=== PATIENT | female | born 1970 | race Caucasian/White ===

== ENCOUNTER 2017-03-18 08:17 | Emergency (ER) | payer SELFPAY ==
[~2017-03-18] VITALS: Ht 170.2 cm; Wt 90.0 kg
[2017-03-18 08:21] VITALS: TEMP 36.8; Ht 170.2 cm; Wt 90.0 kg
[2017-03-18] MEDS ORDERED: IBUP-1050 PO (08:32)
[2017-03-18] MEDS ORDERED: NAPR-1169 PO (09:12)
--- NOTE | 2017-03-18 09:13 | EMERGENCY ROOM VISIT NOTE ---
History First contact with patient: 08:22 Chief Complaint: BACK PAIN Stated Complaint: SEVERE LOWER BACK PAIN History of Present Illness The patient is a 46 year old female who presents to the Emergency Room with complaints of low back pain. The patient states that she has chronic pain in her low back, however it has worsened for the past 3 days. She states the pain is located in the lower back and is worse on the left side than the right. She denies any recent trauma to the back. She states that she does not have health insurance and has not been seen by her primary care provider or any other providers regarding this pain. She has not had any imaging done in the past. The patient denies any pain radiating down her legs, numbness/weakness, bowel/ bladder incontinence, fevers/chills, abdominal pain, nausea or vomiting. She states that she took a dose of ibuprofen this morning, but has not been taking anything else for the pain. She rates her discomfort an 8/10. Review of Systems A complete 10 point review of systems was reviewed with the patient with pertinent positives and negatives as per history of present illness. All else were negative. Family History Diabetes mellitus Social History Smoking Status: Never Smoker Alcohol Use: none Marital Status: single Housing Status: lives alone Occupation Status: employed Current/Historical Medications Scheduled Ibuprofen (Advil), 400-600 MG PO Q6H Naproxen (Naprosyn), 500 MG PO BID Physical Exam Vital Signs Date Time Temp Pulse Resp B/P (MAP) Pulse Ox O2 Delivery O2 Flow Rate FiO2 03/18/17 09:34 77 20 133/77 95 03/18/17 08:21 36.8 74 20 129/86 97 Room Air Physical Exam VITALS: Vitals are noted on the nurse's note and reviewed by myself. Vital signs stable. GENERAL: This is a 46-year-old female, in no acute distress, nondiaphoretic, well-developed well-nourished. SKIN: The skin was without rashes, erythema, edema, or bruising. EYES: Pupils equal round and reactive to light and accommodation. NECK: Supple without nuchal rigidity. Cervical spine is nontender. HEART: Regular rate and rhythm without murmurs gallops or rubs. LUNGS: Clear to auscultation bilaterally without wheezes, rales or rhonchi. ABDOMEN: Positive bowel sounds x 4. Soft, nontender to palpation. MUSCULOSKELETAL: There is mild, vague tenderness over the lumbar region, left greater than right. Full range of motion of bilateral lower extremity. Strength 5/5 in bilateral lower extremities. Full range of motion of the spine. NEURO: Patient was alert and oriented to person place and time. Normal sensation to light and sharp touch. Deep tendon reflexes 2+ throughout. No focal neurological deficits. Medical Decision & Procedures Medical Decision Differential diagnosis includes cauda equina syndrome, cord compression, disc herniation, muscle spasm, lumbar strain, epidural abscess, malignancy, transverse myelitis, urinary tract infection, colitis, diverticulitis, kidney stone, among others. The patient is a 46-year-old female who presents today complaining of low back pain. Exam is unremarkable. There is nothing to suggest an infectious process or cauda equina syndrome on exam. I feel the patient's pain is likely musculoskeletal in nature. Conservative measures were discussed with the patient. She was given a prescription for Naprosyn instructed to follow-up with a primary care provider for further evaluation. She verbalized understanding of my assessment and treatment plan and was discharged home in good condition. Medication Reconcilliation Current Medication List: was personally reviewed by me Blood Pressure Screening Patient's blood pressure: Normal blood pressure Impression Primary Impression: Lumbar back pain Departure Information Dispostion Home / Self-Care Condition GOOD Prescriptions Naproxen (Naprosyn) 500 Mg Tab 500 MG PO BID for 10 Days, #20 TAB Prov: Kenzie Butcher .JUAN M 03/18/17 Referrals No Doctor, Assigned (PCP) Patient Instructions Back Pain - [facility], [facility] Additional Instructions You have been treated in the Emergency Department for Back Pain. Naprosyn as prescribed. For pain control, you can use the following [id number] medicines (if >12 yo): - Regular strength (325mg/tab) Tylenol (acetaminophen) 2 tabs every 4-6 hours as needed. Do not exceed 12 tablets in a 24 hour period. Avoid taking more than 4 grams (4000 mg) of Tylenol per day. This includes any other sources of acetaminophen you may take on a regular basis. A heating pad can be used over the area for continued soothing relief. You should schedule a follow-up appointment in 2-3 days with your Primary Care Provider for further evaluation and treatment of your back pain. Return to the Emergency Department if your current symptoms worsen despite treatment course outlined above, or if you develop any of the following symptoms : intractable pain despite aforementioned treatment course, loss of control of your bowel or bladder, numbness or tingling in your groin, or development of a fever. Problem Qualifiers Primary Impression: Lumbar back pain Chronicity: acute Back pain laterality: bilateral Sciatica presence: without sciatica Qualified Codes: M54.5 - Low back pain
[2017-03-18 09:34] VITALS: BP 133/77; PULSE 77; O2SAT 95
== END 2017-03-18 09:35 | disposition home or self-care (01) ==
LOC: C.EDB 08:18
DX: M54.5 Low back pain (principal); Z83.3 Family history of diabetes mellitus

== ENCOUNTER 2017-09-29 19:07 | Emergency (ER) | payer SELFPAY ==
[~2017-09-29] VITALS: Ht 170.2 cm; Wt 88.3 kg
[~2017-09-29 19:07] MED LIST: IBUP-1050 PO
[2017-09-29 19:16] VITALS: TEMP 36.6; Ht 170.2 cm; Wt 88.3 kg
[2017-09-29] MEDS ORDERED: AMOXICILLIN 500 MG CAP PO STA (19:39)
[2017-09-29] MEDS ORDERED: DEXAMETHASONE SOD INJ 4 MG/ML VIAL PO ONE (19:45)
[2017-09-29] MEDS ORDERED: PRED50TA PO (19:51)
[2017-09-29] MEDS ORDERED: AMOX500C3 PO (19:51)
--- NOTE | 2017-09-29 19:52 | EMERGENCY ROOM VISIT NOTE ---
History First contact with patient: 19:23 Chief Complaint: SORETHROAT Stated Complaint: SORE THROAT History of Present Illness The patient is a 47 year old female who presents to the Emergency Room with complaints of a sore throat for the last week. The patient is able to swallow, however it is difficult and painful. She denies any shortness of breath. No trouble opening her mouth. She denies any fever or cough. The patient's daughter recently tested positive for strep Review of Systems 10 system review performed and negative unless noted in HPI or below Past Medical/Surgical History Otherwise healthy Family History Diabetes mellitus Social History Smoking Status: Never Smoker Alcohol Use: none Marital Status: single Housing Status: lives alone Occupation Status: employed Current/Historical Medications Scheduled Amoxicillin (Amoxil), 500 MG PO TID Ibuprofen (Advil), 400-600 MG PO Q6H Prednisone (Prednisone), 50 MG PO DAILY Physical Exam Vital Signs Date Time Temp Pulse Resp B/P (MAP) Pulse Ox O2 Delivery O2 Flow Rate FiO2 09/29/17 20:22 73 18 121/80 95 09/29/17 19:16 36.6 86 18 122/82 98 Room Air Physical Exam VITALS: Vitals are noted on the nurse's note and reviewed by myself. Vital signs stable. GENERAL: 47 y/o, in no acute distress, nondiaphoretic, well-developed well- nourished. SKIN: The skin was without rashes, erythema, edema, or bruising. HEAD: Normocephalic atraumatic. EARS: External auditory canals clear, right tympanic membranes pearly escudero without effusion. Left tympanic membrane is pearly escudero, bulging with a significant effusion EYES: Conjunctivae without injection, sclerae without icterus. Extraocular movements intact. NOSE: Patent, turbinates without inflammation or discharge. No sinus tenderness. MOUTH: Mucous membranes moist. Tonsils are enlarged +2 with erythema and exudate bilaterally. Uvula is midline. No swelling of the soft palate. Airway is patent. NECK: Supple without nuchal rigidity. Lymphadenopathy in the anterior posterior cervical chain bilaterally No JVD. HEART: Regular rate and rhythm without murmurs gallops or rubs. LUNGS: Clear to auscultation bilaterally without wheezes, rales or rhonchi. No accessory muscle use. ABDOMEN: Positive bowel sounds x 4.Soft, nontender, without organomegaly. No guarding or rebound tenderness. MUSCULOSKELETAL: No muscle atrophy, erythema, or edema noted. Strength 5/5 throughout. NEURO: Patient was alert and oriented to person place and time. Normal sensation to touch. No focal neurological deficits. Medical Decision & Procedures Medications Administered Medications (Trade) Dose Ordered Sig/Chente Route Start Time Stop Time Status Last Admin Dose Admin Amoxicillin (Amoxil Cap) 500 mg NOW STAT PO 09/29/17 19:39 09/29/17 19:40 DC 09/29/17 20:18 500 MG Dexamethasone Sodium Phosphate (Decadron Inj) 10 mg NOW ONCE PO 09/29/17 19:45 09/29/17 19:46 DC 09/29/17 20:18 10 MG ED Course The patient was seen and examined A rapid strep was performed The patient was treated with amoxicillin and Decadron Discharge instructions were reviewed, and she was discharged in good condition Medical Decision Differential diagnosis: Viral versus bacterial tonsillitis, peritonsillar abscess This patient is a 47-year-old female who presents to the emergency department with complaints of a sore throat for approximately 1 week. On exam, she has tonsillitis. No signs of abscess. The patient's daughter recently tested positive for strep; therefore, I will treat the patient with a 10 day course of amoxicillin in addition to steroids for inflammation. She will be rechecked by her primary care physician, and return with worsening symptoms This chart was completed in part utilizing [employer] Speech Voice Recognition software. Attempts were made to minimize the grammatical errors, random word insertions, pronoun errors and incomplete sentences. Any formal questions or concerns about the content, text or information contained within the body of this dictation should be directly addressed to the provider for clarification. Impression Primary Impression: Acute bacterial tonsillitis Departure Information Dispostion Home / Self-Care Condition GOOD Prescriptions Prednisone (Prednisone) 50 Mg Tab 50 MG PO DAILY for 4 Days, #4 TAB Prov: Tori Benjamin PA-C 09/29/17 Amoxicillin (AMOXIL) 500 Mg Cap 500 MG PO TID for 10 Days, #30 CAP Prov: Tori Benjamin PA-C 09/29/17 Referrals No Doctor, Assigned (PCP) Patient Instructions [facility] Additional Instructions Please take the entire course of amoxicillin and prednisone as directed Drink plenty of fluids Ibuprofen 800 mg and/or Tylenol 1000 mg every 8 hours as needed for pain You may also alternate these medications for more effective pain relief: Ibuprofen --4 HRS--> Tylenol --4 HRS--> ibuprofen --4 HRS--> Tylenol .... Please follow-up with your primary care physician for a recheck Do not hesitate to return to the emergency department with any new, worsening or concerning symptoms It was a pleasure participating in your care
[2017-09-29 20:22] VITALS: BP 121/80; PULSE 73; O2SAT 95
== END 2017-09-29 20:19 | disposition home or self-care (01) ==
LOC: C.EDB 19:08 → C.EDD 20:19
DX: J03.90 Acute tonsillitis, unspecified (principal); Z83.3 Family history of diabetes mellitus

== ENCOUNTER 2019-10-12 08:43 | Inpatient (IN) ==
--- NOTE | 2019-10-12 09:08 | Emergency Department Note ---
Impression & Plan Depression, Hopelessness ED Provider Note NAME: GRAZYNA XIE AGE: 49 SEX: F ARRIVES VIA: Walk-In INFORMANT: Patient, ED PROVIDER(S): Lg Mckeon MD CHIEF COMPLAINT: Depression, Suicidal ideation PLAN: Disposition: Admit (3S) MEDICAL DECISION MAKING: The patient is a 49-year-old woman with a past medical history of anxiety and depression who presents emergency department for evaluation of persistent depression with thoughts expressed to family members of killing herself where she reports she has enough medications to do so. Denies any fevers, chills, cough, congestion, nausea, vomiting, diarrhea, urinary symptoms. On arrival the patient is no acute distress, afebrile stable vital signs. The patient does report severe depression and hopelessness but denies active thoughts of SI or HI. She reports she didn't really mean what she said to her daughter about overdosing on her medications. WBC, hemoglobin, platelets within normal limits. Chemistry without acidosis. Electrolytes and LFTs unremarkable. UA appears contaminated and patient denies any urinary symptoms therefore will defer treatment pending culture at this time. Drug screen was unremarkable. Patient was medically cleared. Patient was interested in voluntary admission. Referral was made to S. and she was accepted. 201 was signed. Triage Nursing notes reviewed and agree them. Additional history obtained from family Prior medical records reviewed Vital Signs: reviewed and remarkable for no significant abnormalities Differential diagnosis: Mood disorder, infection, hypoglycemia, electrolyte abnormalities, cardiac sources, intracerebral event, toxicologic, trauma, neurologic, as well as other pathologies. ER treatment provided: See below Laboratory studies: See below HPI: The patient is a 49-year-old woman with a past medical history of anxiety and depression who presents emergency department for evaluation of persistent depression with thoughts expressed to family members of killing herself where she reports she has enough medications to do so. Denies any fevers, chills, cough, congestion, nausea, vomiting, diarrhea, urinary symptoms. ROS: See above HPI for pertinent positives & negatives. A total of 10 systems reviewed and were otherwise negative. PAST MEDICAL HISTORY:See Below PAST SURGICAL HISTORY:See Below FAMILY HISTORY:See Below SOCIAL HISTORY:See Below HOME MEDICATIONS:See Below ALLERGIES:See Below VITALS:See Below PHYSICAL EXAMINATION: GENERAL: Awake, alert, melancholy-appearing, in no distress HENT: Normocephalic, atraumatic. Oropharynx unremarkable. EYES: Normal conjunctiva. Sclera non-icteric. NECK: Supple. No nuchal rigidity. FROM. No JVD. RESPIRATORY: Clear to auscultation. CARDIAC: Regular rate, normal rhythm. Extremities warm and well perfused. Pulses equal. ABDOMEN: Soft, non-distended. No tenderness to palpation. No rebound or guarding. No masses. RECTAL: Deferred. MUSCULOSKELETAL: Chest examination reveals no tenderness. The back is symmetrical on inspection without obvious abnormality. There is no CVA t enderness to palpation. No joint edema. LOWER EXTREMITIES: Calves are equal size bilaterally and non-tender. No edema. No discoloration. NEURO: Normal sensorium. No sensory or motor deficits noted. SKIN: No rash or jaundice noted. PSYCH: Positive depression, positive hopelessness, denies active SI or HI. Lg Mckeon MD Past Med/Surg History Medical History Anxiety (Acute) Bronchitis (Acute) Depression (Acute) Family History Other Diabetes Social History Preferred Language: Portuguese Communication Ability: Effective Tele Tech Required: No Beliefs That Will Affect Care: None marital status: Current Living Situation: Spouse current occupational status: employed Feels Safe at Home: Yes Smoking Status: Never smoker Allergies Allergies Allergy/AdvReac Type Severity Reaction Status Date / Time No Known Allergies Allergy Verified 10/12/19 09:15 Home Meds Home Medications Medication Instructions Recorded Confirmed quetiapine [Seroquel] 300 mg PO HS 09/29/19 10/12/19 Results & Data (ED) Vital Signs Vital Signs - 24 hr 10/12/19 08:50 10/12/19 13:52 Temperature 36.8 C Temperature Source Oral Pulse Rate 100 H 106 H Respiratory Rate 20 18 Respiratory Effort / Characteristics Non-Labored Respiratory Depth Normal Blood Pressure 129/90 159/128 H Blood Pressure Mean 103 Pulse Oximetry 99 98 Oxygen Delivery Method Room Air Room Air Sepsis Recent Fever Within 48 Hours No Sepsis Action Taken by Nursing No Action Required Laboratory Data Attestation: I reviewed the patient's lab results. Result diagrams: 10/12/19 09:45 10/12/19 09:45 Lab Results 10/12/19 10/12/19 10/12/19 Range/Units 09:03 09:03 09:45 WBC 6.94 (4.8-10.8) K/uL RBC 3.86 L (4.2-5.4) M/uL Hgb 12.6 (12.0-16.0) g/dL Hct 36.8 L (37-47) % MCV 95.3 (80-100) fL MCH 32.6 (25-34) pg MCHC 34.2 (32-36) g/dL RDW Std Deviation 47.9 H (36.4-46.3) fL RDW Coeff of Deirdre 13.7 (11.5-14.5) % Plt Count 296 (130-400) K/uL MPV 10.1 (7.4-10.4) fL Immature Gran % (Auto) 0.1 % Neut % (Auto) 54.2 % Lymph % (Auto) 34.4 % Polk % (Auto) 6.5 % Eos % (Auto) 4.2 % Baso % (Auto) 0.6 % Immature Gran # (Auto) 0.01 (0.00-0.02) K/uL Neut # (Auto) 3.76 (1.4-6.5) K/uL Lymph # (Auto) 2.39 (1.2-3.4) K/uL Polk # (Auto) 0.45 (0.11-0.59) K/uL Eos # (Auto) 0.29 (0-0.5) K/uL Baso # (Auto) 0.04 (0-0.2) K/uL Sodium (136-145) mmol/L Potassium (3.5-5.1) mmol/L Chloride (98-107) mmol/L Carbon Dioxide (21-32) mmol/L Anion Gap (3-11) BUN (7-18) mg/dl Creatinine (0.6-1.2) mg/dl Est Cr Clr Drug Dosing ml/min Est GFR ( Amer) Est GFR (Non-Af Amer) BUN/Creatinine Ratio (10-20) Glucose (70-99) mg/dl Calcium (8.5-10.1) mg/dl Total Bilirubin (0.2-1) mg/dl AST (15-37) U/L ALT (12-78) U/L Alkaline Phosphatase (45-117) U/L Total Protein (6.4-8.2) gm/dl Albumin (3.4-5.0) gm/dl Globulin (2.5-4.0) gm/dl Albumin/Globulin Ratio (0.9-2) TSH (0.300-4.500) uIu/ml Urine Color Yellow Urine Appearance Cloudy A (Clear) Urine pH 5.0 (4.5-7.5) Ur Specific Cross 1.009 (1.000-1.030) Urine Protein Negative (Negative) Urine Glucose (UA) Negative (Negative) Urine Ketones Negative (Negative) Urine Blood Trace H (Negative) Urine Nitrite Negative (Negative) Urine Bilirubin Negative (Negative) Urine Urobilinogen Negative (Negative) Ur Leukocyte Esterase 2+ H (Negative) Urine WBC (Auto) 1-5 (0-5) /hpf Urine RBC (Auto) 0-4 (0-4) /hpf U Hyaline Cast (Auto) 0 (0-5) /lpf U Epithel Cells (Auto) >30 H (0-5) /lpf Urine Bacteria (Auto) 1+ H (Negative) Amorphous Sediment Present A (None Prsent) Salicylates (2.8-20) mg/dl Urine Opiates Screen Neg (Neg) Ur Methadone, Qual Neg (Neg) Acetaminophen (10-30) ug/ml Urine Barbiturates Neg (Neg) Ur Phencyclidine (PCP) Neg (Neg) U Amphetamin/Meth Scrn Neg (Neg) MDMA (Ecstasy) Screen Neg (Neg) U Benzodiazepines Scrn Neg (Neg) Ur Cocaine Metabolite Neg (Neg) U Marijuana (THC) Screen Neg (Neg) Ethyl Alcohol mg/dL (0-3) mg/dl 10/12/19 10/12/19 10/12/19 Range/Units 09:45 09:45 09:45 WBC (4.8-10.8) K/uL RBC (4.2-5.4) M/uL Hgb (12.0-16.0) g/dL Hct (37-47) % MCV (80-100) fL MCH (25-34) pg MCHC (32-36) g/dL RDW Std Deviation (36.4-46.3) fL RDW Coeff of Deirdre (11.5-14.5) % Plt Count (130-400) K/uL MPV (7.4-10.4) fL Immature Gran % (Auto) % Neut % (Auto) % Lymph % (Auto) % Polk % (Auto) % Eos % (Auto) % Baso % (Auto) % Immature Gran # (Auto) (0.00-0.02) K/uL Neut # (Auto) (1.4-6.5) K/uL Lymph # (Auto) (1.2-3.4) K/uL Polk # (Auto) (0.11-0.59) K/uL Eos # (Auto) (0-0.5) K/uL Baso # (Auto) (0-0.2) K/uL Sodium 140 (136-145) mmol/L Potassium 3.4 L (3.5-5.1) mmol/L Chloride 107 (98-107) mmol/L Carbon Dioxide 28 (21-32) mmol/L Anion Gap 4.0 (3-11) BUN 9 (7-18) mg/dl Creatinine 0.80 (0.6-1.2) mg/dl Est Cr Clr Drug Dosing 95.3 ml/min Est GFR ( Amer) 101.0 Est GFR (Non-Af Amer) 87.2 BUN/Creatinine Ratio 11.5 (10-20) Glucose 100 H (70-99) mg/dl Calcium 8.5 (8.5-10.1) mg/dl Total Bilirubin 0.3 (0.2-1) mg/dl AST 10 L (15-37) U/L ALT 21 (12-78) U/L Alkaline Phosphatase 101 (45-117) U/L Total Protein 7.3 (6.4-8.2) gm/dl Albumin 3.6 (3.4-5.0) gm/dl Globulin 3.7 (2.5-4.0) gm/dl Albumin/Globulin Ratio 1.0 (0.9-2) TSH 0.841 (0.300-4.500) uIu/ml Urine Color Urine Appearance (Clear) Urine pH (4.5-7.5) Ur Specific Cross (1.000-1.030) Urine Protein (Negative) Urine Glucose (UA) (Negative) Urine Ketones (Negative) Urine Blood (Negative) Urine Nitrite (Negative) Urine Bilirubin (Negative) Urine Urobilinogen (Negative) Ur Leukocyte Esterase (Negative) Urine WBC (Auto) (0-5) /hpf Urine RBC (Auto) (0-4) /hpf U Hyaline Cast (Auto) (0-5) /lpf U Epithel Cells (Auto) (0-5) /lpf Urine Bacteria (Auto) (Negative) Amorphous Sediment (None Prsent) Salicylates < 1.7 L (2.8-20) mg/dl Urine Opiates Screen (Neg) Ur Methadone, Qual (Neg) Acetaminophen < 2 L (10-30) ug/ml Urine Barbiturates (Neg) Ur Phencyclidine (PCP) (Neg) U Amphetamin/Meth Scrn (Neg) MDMA (Ecstasy) Screen (Neg) U Benzodiazepines Scrn (Neg) Ur Cocaine Metabolite (Neg) U Marijuana (THC) Screen (Neg) Ethyl Alcohol mg/dL < 3.0 (0-3) mg/dl Administered Medications Hydroxyzine HCl (Vistaril) 25 mg PO Q4H PRN PRN Reason: Anxiety Stop: 11/11/19 14:37 Last Admin: 10/12/19 17:34 Dose: 25 mg Documented by: [id number] Quetiapine Fumarate (Seroquel) 300 mg PO HS BRONWYN Stop: 11/11/19 21:59 Last Admin: 10/12/19 20:58 Dose: 300 mg Documented by: [id number] Discontinued Medications Hydroxyzine HCl (Vistaril) 50 mg PO NOW STA Stop: 10/12/19 12:44 Last Admin: 10/12/19 12:47 Dose: 50 mg Documented by: [id number] Blood Pressure Blood Pressure Findings: Elevated blood pressure Blood Pressure Disposition: elevated BP felt to be situational Discharge Plan Visit Data *Final* Discharge Date/Time: 10/12/19 13:52 Chief Complaint: Mental Health Evaluation Stated Complaint: DEPRESSION ED Provider: Lg Mckeon Discharge Problem: Depression, Hopelessness Patient Disposition: Admitted As Inpatient Discharge Instructions Interventions: ED Discharge Assessment Last Done: 10/12/19 13:52 Discharge Problem: Depression Qualifiers: Depression Type: unspecified Qualified Code(s): F32.9 - Major depressive disorder, single episode, unspecified
[2019-10-12 09:15] LABS: Appearance Urine Cloudy (Clear); Bacteria Urine Automated 1+ (Negative); Bilirubin Urine Negative (Negative); Blood Urine Trace (Negative); Cast Urine Automated 0 /lpf (0-5); Color Urine Yellow; Epithelial Cell Urine Auto >30 /lpf (0-5); Glucose Urine UA Negative (Negative); Ketones Urine Negative (Negative); Leukocyte Esterase Urine 2+ (Negative); Nitrite Urine Negative (Negative); Protein Urine Negative (Negative); Specific Gravity Urine 1.009 (1.000-1.030); Urobilinogen Urine Negative (Negative)
[2019-10-12 09:32] LABS: Amphetamines+Metham, Urine Neg (Neg); Barbiturates, Urine Neg (Neg); Benzodiazepine, Urine Neg (Neg); Cocaine, Urine Neg (Neg); MDMA (Ecstacy), Urine Neg (Neg); Methadone, Urine Neg (Neg); Opiate, Urine Neg (Neg); Phencyclidine, Urine Neg (Neg)
[2019-10-12 09:38] LABS: Amorphous Sediment Urine Present (None Prsent); RBC Urine Automated 0-4 /hpf (0-4)
[2019-10-12 10:04] LABS: Basophils # (auto) 0.04 K/uL (0-0.2); Basophils % (auto) 0.6 %; Eosinophils # (auto) 0.29 K/uL (0-0.5); Eosinophils % (auto) 4.2 %; Hematocrit (blood only) 36.8 % (37-47); Hemoglobin 12.6 g/dL (12.0-16.0); Immature Granulocytes # (auto) 0.01 K/uL (0.00-0.02); Immature Granulocytes % (auto) 0.1 %; Lymphocytes # (auto) 2.39 K/uL (1.2-3.4); Lymphocytes % (auto) 34.4 %; Mean Corpuscular Hemoglobin 32.6 pg (25-34); Mean Corpuscular Hgb Conc 34.2 g/dL (32-36); Mean Corpuscular Volume 95.3 fL (80-100); Mean Platelet Volume 10.1 fL (7.4-10.4); Monocytes # (auto) 0.45 K/uL (0.11-0.59); Monocytes % (auto) 6.5 %; Neutrophils # (auto) 3.76 K/uL (1.4-6.5); Neutrophils % (auto) 54.2 %; Platelet Count 296 K/uL (130-400); RDW Coefficient of Variation 13.7 % (11.5-14.5); RDW Standard Deviation 47.9 fL (36.4-46.3); Red Blood Count 3.86 M/uL (4.2-5.4); White Blood Count 6.94 K/uL (4.8-10.8)
[2019-10-12 10:20] LABS: Albumin Level 3.6 gm/dl (3.4-5.0); BUN Creatinine Ratio 11.5 (10-20); Calcium 8.5 mg/dl (8.5-10.1); Creatinine Clr Calc Pharmacy 95.3 ml/min; Est GFR (Non-African American) 87.2; Potassium 3.4 mmol/L (3.5-5.1)
[2019-10-12 10:31] LABS: Bilirubin,Total 0.3 mg/dl (0.2-1); Globulin 3.7 gm/dl (2.5-4.0); Thyroid Stimulating Hormone 0.841 uIu/ml (0.300-4.500); Total Protein 7.3 gm/dl (6.4-8.2)
[2019-10-12 10:49] LABS: Acetaminophen < 2 ug/ml (10-30); Salicylate < 1.7 mg/dl (2.8-20)
[2019-10-12] MEDS ORDERED: SODIUM CHLORIDE 0.65% NA SOLN 45 ML (OCEAN) PRN (14:38)
[2019-10-12] MEDS ORDERED: ALUMINUM/MAGNESIUM SUSP 30 ML UDC PO PRN (14:38)
[2019-10-12] MEDS ORDERED: BISMUTH SUBSALICYLATE PER ML OMNICELL CHARGE PO PRN (14:38)
[2019-10-12] MEDS ORDERED: MAGNESIUM HYDROXIDE SUSP 30 ML UDC PO PRN (14:38)
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
[2019-10-12] MEDS: QUETIAPINE FUMARATE 300 MG TABLET PO SCH (20:58)
[2019-10-13] MEDS: ACETAMINOPHEN 325 MG TAB PO PRN ×2 (01:55→09:35)
[2019-10-13] MEDS: VENLAFAXINE HCL XR 37.5 MG CAPXR PO SCH (08:09)
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
[2019-10-13] MEDS ORDERED: IBUPROFEN 600 MG TAB PO PRN (11:32)
[2019-10-13] MEDS: QUETIAPINE FUMARATE 300 MG TABLET PO SCH (21:30)
[2019-10-14 07:31] LABS: Glucose Fasting 94 mg/dl (70-99)
[2019-10-14 07:38] LABS: Chol HDL Ratio 4; Cholesterol 193 mg/dl (0-200); HDL Cholesterol 44 mg/dl; LDL Cholesterol Calculated 114 mg/dl; Triglycerides 173 mg/dl (0-150); VLDL Cholesterol 35 mg/dl
[2019-10-14] MEDS: VENLAFAXINE HCL XR 37.5 MG CAPXR PO SCH (08:29)
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
[2019-10-14] MEDS ORDERED: VENLAFAXINE HCL XR 37.5 MG CAPXR PO ONE (12:00)
[2019-10-14] MEDS: QUETIAPINE FUMARATE 300 MG TABLET PO SCH (22:22)
--- NOTE | 2019-10-15 08:05 | Psychiatric Progress Note ---
Date of Service October 15, 2019 Impression / Recommendations Impression 49-year-old female with worsening depression, brought to the emergency room by her daughter, who reported that she threatened suicide by overdose. The patient reports her depression has progressively worsened since February 2019 in the context of marital difficulties/separation. She is living with her daughter in [place], and complicating the current situation is the fact that she has no outpatient treatment, does not have health insurance, and cannot afford private pay. She was being treated by her PCP with quetiapine 300 mg at bedtime, and venlafaxine XR was started on admission. Although she reports improved/good mood, her affect is incongruent and she appears markedly depressed, slowed, with impaired insight. She is taking medication and willing to follow-up with outpatient treatment, and is completed an MA application, but we are not able to schedule for therapy or psychiatric care until she has insurance. Although she continues to deny suicidal thoughts, her daughter reports that she had threatened suicide by overdose, and we will continue to work on safety planning. Inpatient treatment remains medically necessary at this time due to the severity of her symptoms and risk for suicide if discharged prematurely. (1) Depression: 10/12/19 -The patient has been admitted to the locked psychiatric unit and has been placed on suicide observations/precautions. She is being encouraged to participate actively in individual, group, and activity therapies. We are also envisioning family interventions, particularly with her , in part to cla rify the current marital situation. Also, the patient's daughter is clearly concerned and involved. -Patient has a history of recurrent depression, but notes that her depression had been in remission for approximately 15 years until she experienced a recurrence of depression, beginning in February. Precipitating or contributing factors appear to include marital difficulties and the fact that, currently, she finds herself living in the home of her adult daughter while her is maintaining a residence elsewhere. Also, her 19-year-old son is now dividing his time between the 2 households. -The patient reports that she has been seeking mental health treatment for several months now, but has been unsuccessful in this regard because of insurance and financial limitations. She is open to treatment. The patient reports that she did not respond to "an antidepressant" recently, but it appears that she is referring to aripiprazole that had been prescribed an unspecified dose by a primary care provider. She reminds us that she has financial limitations and asks us to prescribe a drug that she will be able to afford through self-pay. She sets the limit at "15 or $20 a month." -Patient says that she has responded favorably to quetiapine 300 mg at bedtime and is eager to continue this medication. She notes that without quetiapine, and following unsuccessful trials of "several" hypnotic medications, she is very eager to continue quetiapine because "I sleep really well with that now and, also, I think it does help with my anxiety." She reports that she is not experiencing excess sedation in the mornings. -We will begin venlafaxine ER 37.5 mg a day and titrate as indicated and tolerated. (This medication can be purchased at [employer] for $15 for a 30-day supply). 10/12 - Will continue current medication regimen - we discussed continuing 37.5mg venlafaxine through tomorrow morning, but possibly offering an afternoon dose of the same if she continues to tolerate the medication - Continue quetiapine 300mg qHS for sleep, but also likely to target delusional/paranoid thoughts daughter is reporting but patient is denying - Pt aware of order for fasting glucose and lipid panel tomorrow morning, states she is not aware of these labs being checked recently - Pt denies suicidality at this time, agreeable with scheduling a family meeting with her daughter 10/13 - Titrating venlafaxine to 75mg today, after adding an afternoon dose of 37.5mg today. Pt will receive 75mg qAM starting tomorrow morning - Continue quetiapine 300mg qHS for sleep - Fasting glucose and lipid panel reviewed: glucose - 94, triglycerides - 173, total cholesterol - 193, LDL - 114, HDL - 44 - Pt participated in family meeting with her daughter last evening - daughter continues to reference what she believes to be delusional thoughts prior to patient's hospitalization, though these have not been overtly observed on the unit - continue to monitor, quetiapine can be titrated as indicated or al ternative agents can be discussed. Daughter did not provide any clear history significant for previous manic/hypomanic presentations that would suggest more of a bipolar presentation. 10/14 -Daughter did not describe delusions and no delusional thoughts observed here. Continue quetiapine and titrate venlafaxine XR to target depression. -Referred for case management through the [facility] and will need outpatient psychiatric care and therapy. -Work on discharge safety planning. (2) Anxiety: 10/11 -The patient reports a history of anxiety that she feels is to some degree independent of her depression. She acknowledges anxious distress within the context of depression, but also notes that at other times in her life she has experienced generalized anxiety symptoms or a tendency to react to various stressors with anxiety that is possibly out of proportion to the nature of the stressors. -We are starting the patient on venlafaxine ER 37.5 mg and will titrate accordingly. Hopefully this medication will help with anxiety. Options will include adding an anxiolytic, such as buspirone, and she has also been offered as needed hydroxyzine during her stay. 10/13 - Pt has been utilizing frequent dosing of hydroxyzine, though has difficulty clearly articulating anxious thoughts - Titrating venlafaxine to a total of 75mg today, increasing AM dose to 75mg tomorrow (3) Threatening suicide: 10/12/19 -Patient acknowledges that she has had passive thoughts of , without any specific suicidal plan or intent. She does acknowledge that she has recently threatened suicide to her daughter, but asserts that this threat was not genuine and, instead, was born of frustration and some irritation with her daughter whom she experiences as being somewhat overbearing. -Patient is being monitored with suicide precautions on a locked inpatient unit. She is keron for safety on the unit and assures us that she will notify us if suicidal plan or intent emerges. 10/12 - Pt denies SI today, but ongoing questioning of if patient is minimizing her symptoms at this time - Will need family meeting scheduled with daughter and completion of safety plan for mitigation of risk factors 10/13 - Continues to deny SI, but affect remains very depressed and patient continues to endorse chronic hopelessness (4) Abnormal urinalysis: 10/13 - Culture grew multiple organisms, likely skin [place]; no indication for treatment at this time Inventory Assets Strengths: Supportive family (primarily daughter). Motivated for treatment. The patient reports no history of suicide attempts. Reports depression in remission for approximately 15 years before a recurrence. Needs: Improved mood. Stabilization on an antidepressant medication. Resolution of insomnia. Clarify the patient's marital situation. Outpatient treatment. 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 She has a history of recurrent depression and was admitted on 10/12/19 13:55 on a 201 voluntary commitment for worsening depression with suicidal ideation (told daughter that she is thinking of taking an overdose of pills). Chief Complaint " Okay, better". Review of Systems Sleep Information Total Hours of Sleep: 8.25 Meal Information Percent Meal Consumed - Breakfast: 100 Percent Meal Consumed - Lunch: 100 Percent Meal Consumed - Dinner: 100 Subjective Subjective Patient was seen & assessed and interval progress reviewed with treatment team. Staff report she attended some groups over the weekend, showered, and took hydroxyzine prn. She received 50 mg at bedtime and 25 mg after awaking early this morning and reporting an anxiety, and although she told staff that it does not work, she was observed to be asleep within 30 minutes of receiving it. On my assessment, she reports that mood has improved since admission, rates it a 7/10, and thinks that medications are helping. She denies side effects, and is working on discharge planning, specifically arranging outpatient treatment. She says the meeting with her daughter went well and says "she is as supportive as she can be, she has her own problems too." She reports good appetite, and sleep has improved, but still suboptimal. She thinks that groups have been helpful as it helps her to hear about others who are struggling as well. Physical Exam Psychiatric Orientation: alert and cooperative Apperance: appropriately dressed, appropriately groomed and appeared stated age Eye Contact: + fair eye contact Motor Behavior: steady gait and station and no abnormal motor movements Minimal, monotone Affect: + depressed affect and + constricted affect; + mood not congruent with affect "Okay, better." Thought Process: goal directed thought process and + concrete thought process Thought Content: reality based without delusions Suicidal Thoughts: denies suicidal thoughts Homicidal Thoughts: denies homicidal thoughts Hallucinations: no auditory hallucinations and no visual hallucinations Cognition: recent memory grossly intact, attention grossly intact and language grossly intact Insight: + impaired insight Judgement: + impaired judgement Vital Signs (Past 24 Hours) Last Vital Signs Temp 36.6 C 10/15/19 06:45 Pulse 99 H 10/15/19 06:45 Resp 18 10/15/19 06:45 BP 119/72 10/15/19 06:45 Pulse Ox 98 10/12/19 13:52 Results & Data ([facility]) Current Inpatient Medications Current Inpatient Medications: Current Inpatient Medications Acetaminophen (Tylenol) 650 mg PO Q4H PRN PRN Reason: Headache or Minor Fever Stop: 11/11/19 14:37 Last Admin: 10/13/19 09:35 Dose: 650 mg Documented by: Al Hydrox/Mg Hydrox/Simethicone (Maalox) 30 ml PO Q4H PRN PRN Reason: GI Upset Stop: 11/11/19 14:37 Bismuth Subsalicylate (Kaopectate) 15 ml PO PRN PRN PRN Reason: Loose Stool Stop: 11/11/19 14:37 Hydroxyzine HCl (Vistaril) 50 mg PO HSZ PRN PRN Reason: Insomnia Stop: 11/11/19 14:37 Last Admin: 10/14/19 22:24 Dose: 50 mg Documented by: Hydroxyzine HCl (Vistaril) 25 mg PO Q4H PRN PRN Reason: Anxiety Stop: 11/11/19 14:37 Last Admin: 10/15/19 05:23 Dose: 25 mg Documented by: Ibuprofen (Motrin) 600 mg PO Q6H PRN PRN Reason: Pain Stop: 11/12/19 11:44 Last Admin: 10/13/19 11:54 Dose: 600 mg Documented by: Magnesium Hydroxide (Milk Of Magnesia) 30 ml PO DAILY PRN PRN Reason: Constipation Stop: 11/11/19 14:37 Quetiapine Fumarate (Seroquel) 300 mg PO HS BRONWYN Stop: 11/11/19 21:59 Last Admin: 10/14/19 22:22 Dose: 300 mg Documented by: Sodium Chloride (Wilkinson Nasal) 1 - 2 sprays NA PRN PRN PRN Reason: Nasal Dryness/Congestion Stop: 11/11/19 14:37 Venlafaxine HCl (Effexor Extended Release) 75 mg PO QAM BRONWYN Stop: 11/14/19 08:59 Mental Health & Subst Abuse Tx Therapist Name of Therapist: None Spout Tender Name of Spout Tender: willing to get one Post Discharge Appointments Primary Care Physician Name Of Family Doctor: [facility] (1) Depression Depression Type: unspecified Qualified Code(s): F32.9 - Major depressive disorder, single episode, unspecified
[2019-10-15] MEDS: VENLAFAXINE HCL XR 75 MG CAPXR PO SCH (08:30)
[2019-10-15] MEDS: QUETIAPINE FUMARATE 300 MG TABLET PO SCH (22:08)
[2019-10-16] MEDS: VENLAFAXINE HCL XR 75 MG CAPXR PO SCH (08:48)
--- NOTE | 2019-10-16 09:16 | Discharge Summary ---
Date of Service October 16, 2019 History of Present Illness This 49-year-old woman presented to the emergency department today in the company of her adult daughter, and complained of worsening depression and anxiety. Although the patient told the emergency department staff that she was not suicidal, the patient's daughter reports that she has threatened suicide by overdose, and the patient acknowledges that she did, in fact, tell her daughter that she was considering taking an overdose of drugs. The patient reports that she experienced a similar episode of depression in 2003 and was psychiatrically hospitalized at [facility] behavioral health unit at that time. She reports that her depression subsequently resolved, and she has been largely depression free for approximately 15 years, but then began to experience worsening symptoms of depression beginning in February 2019. Her symptoms of depression include initial and intermittent insomnia, depressed mood, psychosocial withdrawal, apathy, anergia, difficulty concentrating, and anhedonia. Although the patient does not immediately identify a precipitating factor, she acknowledges that she and her of approximately 24 years have been having serious marital difficulties and are currently with an uncertain status for the future. Apparently contributing to the marital difficulties is the fact that the couple moved to [facility] from the [facility] last February and the stress associated with this circumstance seems to have exacerbated the marital difficulties. Currently, the patient is living at the home of her 24-year-old daughter. She has a 19-year-old son who divides his time between the home that she is now sharing with her daughter, and her now estranged 's residence. Patient notes that she has been attempting to find a psychiatrist for some time now, but is uninsured and has limited financial wherewithal. Physical Exam Psychiatric Orientation: alert and cooperative Apperance: appropriately dressed, appropriately groomed and appeared stated age Eye Contact: + fair eye contact Motor Behavior: steady gait and station and no abnormal motor movements Speech: normal rate/rhythm/volume of speech Affect: + blunted affect "Better, okay." Thought Process: goal directed thought process and clear/coherent thought process Thought Content: reality based without delusions Suicidal Thoughts: denies suicidal thoughts Homicidal Thoughts: denies homicidal thoughts Hallucinations: no auditory hallucinations and no visual hallucinations Cognition: recent memory grossly intact, attention grossly intact and language grossly intact Estimated Intelligence: average estimated intelligence Insight: + fair insight Judgement: + fair judgement Vital Signs (Past 24 Hours) Last Vital Signs Temp 36.7 C 10/16/19 06:52 Pulse 93 H 10/16/19 06:53 Resp 18 10/16/19 06:52 BP 111/79 10/16/19 06:53 Pulse Ox 98 10/12/19 13:52 Principal Diagnosis Major depressive disorder, recurrent, severe without psychosis Anxiety not otherwise specified Psychiatric Data The patient was hospitalized on our unit for 4 days. On admission, she was continued on her home dose of quetiapine, and venlafaxine XR was added to target depression and anxiety. She was also offered hydroxyzine as needed for anxiety and sleep, which she utilized several times a day throughout her hospitalization, and reported was beneficial. She consistently denied suicidal thought in the hospital. Her daughter was not necessarily a reliable historian, as she also reported that the patient was exhibiting delusions, but was unable to give any information to support this, and when asked, and instead talked about the daughter's belief that her mother had accessed her cell phone while she was sleeping and sent text messages, which the patient denied doing, and in fact stated she could not have done as the daughter's cell phone can only be opened by her thumbprint. Records from previous hospitalizations were reviewed, as she had been hospitalized 3 times on our unit in 7210-3020 for severe recur rent depression. Records indicated a tendency to underreport her difficulties, and a history of overusing medications in order to sleep. At the time, her children had been removed from her custody by [place] and placed with her sister, and she had been arrested for abducting her children and attempting to take them to [place], where her estranged was living. She was from her and was living with her brother. Previous medication trials included Prozac, Paxil, Zyprexa, Wellbutrin, risperidone, Lexapro, Seroquel, sertraline, clonazepam, and trazodone. She was diagnosed with severe depression with psychosis. During her current hospitalization, she was involved in groups and therapy, and process stressors, primarily the separation from her and difficulty getting outpatient services. She was assisted to complete a medical assistance application, and referred to [facility] for case management and assistance with outpatient mental health treatment. She consistently denied suicidal thoughts and psychotic symptoms throughout her stay, and reported improvement in mood. She denied that she had ever told her daughter she was suicidal, or that she had ever had thoughts of overdosing or harming herself, and we were unable to reconcile this with her daughter's reports. She was performing ADLs independently, eating well, showering, and sleeping well. She reported pervasive anxiety, and received 2-3 doses of hydroxyzine 25 mg daily throughout her stay. She had a family meeting with her daughter and the social media marketing analyst, during which she discussed her goals for the future, and ways to increase structure and supports at home. Her daughter stated the patient was welcome to continue to live with her, but that she has a pattern of leaving her but then returning to him. She stated that her mother has benefited from treatment in the past, and that when she is doing well she is optimistic and encouraging of others. The patient tolerated her medications well, denied side effects, and stated willingness to follow-up with outpatient treatment as recommended. She was focused on discharge, and denied safety concerns, and although she continued to appear depressed and restricted in her affect, she reported improved mood. Day of Discharge Assessment Staff report the patient continues to attend and participate in groups and therapy, is consistently denying suicidal thoughts and psychotic symptoms, has not engaged in self-injurious or aggressive behavior, is eating and sleeping well, and taking medications without difficulty. On my assessment, she states her mood is improved from admission, and denies suicidal thoughts and thoughts of harming others. She is able to review her safety plan, and her plans for the future/ways to add structure to her day. She states the hydroxyzine has been helpful, and would like a prescription for it at discharge. She denies paranoia, hallucinations, and no delusions are evident. She denies any safety concerns with discharge Transition of Care Transition Of Care Record: was reviewed with the patient Advance Directives Advance Directives Information Provided: Yes Advance Directives: No Mental Health Advance Directive: No Advance Directives on File: No Living Will: No Power of Epic Prelude Analyst: No Advance Directives Reason:: Declines as Mental Health Visit. Risk Factors Assessment Risk factors were mitigated by admission to the inpatient unit, adjusting medications to target depressive and anxiety symptoms, involving her in groups and therapy, working on healthy coping skills and a discharge safety plan, referring her for outpatient mental health treatment, referring her for a blended case checker, and a family meeting with her daughter whom she is living with. She is reported improved mood, has consistently denied thoughts of harming herself or others, is completing ADLs independently, eating and sleeping well, taking medications, and indicating willingness to follow-up with outpatient mental health treatment. She is requesting discharge, and as she is no longer at acute risk of harm to herself, can be managed as an outpatient at this time. She is not at increased risk for harm to others. 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) Stable Relationships: Yes Supportive Family: Yes Good Rapport with Provider: No Absence of Any Risk Factors Above: No Tobacco Cessation at Discharge Tobacco Cessation Medication Prescribed at Discharge: Not Applicable/Non-Smoker Total Time Total Time Spent: Greater Than 30 Minutes Total Time Includes: Examination of the patient, Discharge Planning and Medication Reconciliation Discharge Data Lab Results 10/12/19 10/12/19 10/12/19 09:03 09:03 09:45 WBC 6.94 RBC 3.86 L Hgb 12.6 Hct 36.8 L MCV 95.3 MCH 32.6 MCHC 34.2 RDW Std Deviation 47.9 H RDW Coeff of Deirdre 13.7 Plt Count 296 MPV 10.1 Immature Gran % (Auto) 0.1 Neut % (Auto) 54.2 Lymph % (Auto) 34.4 Tama % (Auto) 6.5 Eos % (Auto) 4.2 Baso % (Auto) 0.6 Immature Gran # (Auto) 0.01 Neut # (Auto) 3.76 Lymph # (Auto) 2.39 Tama # (Auto) 0.45 Eos # (Auto) 0.29 Baso # (Auto) 0.04 Sodium Potassium Chloride Carbon Dioxide Anion Gap BUN Creatinine Est Cr Clr Drug Dosing Est GFR ( Amer) Est GFR (Non-Af Amer) BUN/Creatinine Ratio Glucose Fasting Glucose Calcium Total Bilirubin AST ALT Alkaline Phosphatase Total Protein Albumin Globulin Albumin/Globulin Ratio Triglycerides Cholesterol LDL Cholesterol, Calc VLDL Cholesterol, Calc HDL Cholesterol Cholesterol/HDL Ratio TSH Urine Color Yellow Urine Appearance Cloudy A Urine pH 5.0 Ur Specific [place] 1.009 Urine Protein Negative Urine Glucose (UA) Negative Urine Ketones Negative Urine Blood Trace H Urine Nitrite Negative Urine Bilirubin Negative Urine Urobilinogen Negative Ur Leukocyte Esterase 2+ H Urine WBC (Auto) 1-5 Urine RBC (Auto) 0-4 U Hyaline Cast (Auto) 0 U Epithel Cells (Auto) >30 H Urine Bacteria (Auto) 1+ H Amorphous Sediment Present A Salicylates Urine Opiates Screen Neg Ur Methadone, Qual Neg Acetaminophen Urine Barbiturates Neg Ur Phencyclidine (PCP) Neg U Amphetamin/Meth Scrn Neg MDMA (Ecstasy) Screen Neg U Benzodiazepines Scrn Neg Ur Cocaine Metabolite Neg U Marijuana (THC) Screen Neg Ethyl Alcohol mg/dL 10/12/19 10/12/19 10/12/19 09:45 09:45 09:45 WBC RBC Hgb Hct MCV MCH MCHC RDW Std Deviation RDW Coeff of Deirdre Plt Count MPV Immature Gran % (Auto) Neut % (Auto) Lymph % (Auto) [place]ama % (Auto) Eos % (Auto) Baso % (Auto) Immature Gran # (Auto) Neut # (Auto) Lymph # (Auto) [place] # (Auto) Eos # (Auto) Baso # (Auto) Sodium 140 Potassium 3.4 L Chloride 107 Carbon Dioxide 28 Anion Gap 4.0 BUN 9 Creatinine 0.80 Est Cr Clr Drug Dosing 95.3 Est GFR ( Amer) 101.0 Est GFR (Non-Af Amer) 87.2 BUN/Creatinine Ratio 11.5 Glucose 100 H Fasting Glucose Calcium 8.5 Total Bilirubin 0.3 AST 10 L ALT 21 Alkaline Phosphatase 101 Total Protein 7.3 Albumin 3.6 Globulin 3.7 Albumin/Globulin Ratio 1.0 Triglycerides Cholesterol LDL Cholesterol, Calc VLDL Cholesterol, Calc HDL Cholesterol Cholesterol/HDL Ratio TSH 0.841 Urine Color Urine Appearance Urine pH Ur Specific [place] Urine Protein Urine Glucose (UA) Urine Ketones Urine Blood Urine Nitrite Urine Bilirubin Urine Urobilinogen Ur Leukocyte Esterase Urine WBC (Auto) Urine RBC (Auto) U Hyaline Cast (Auto) U Epithel Cells (Auto) Urine Bacteria (Auto) Amorphous Sediment Salicylates < 1.7 L Urine Opiates Screen Ur Methadone, Qual Acetaminophen < 2 L Urine Barbiturates Ur Phencyclidine (PCP) U Amphetamin/Meth Scrn MDMA (Ecstasy) Screen U Benzodiazepines Scrn Ur Cocaine Metabolite U Marijuana (THC) Screen Ethyl Alcohol mg/dL < 3.0 10/14/19 06:55 WBC RBC Hgb Hct MCV MCH MCHC RDW Std Deviation RDW Coeff of Deirdre Plt Count MPV Immature Gran % (Auto) Neut % (Auto) Lymph % (Auto) [place] % (Auto) Eos % (Auto) Baso % (Auto) Immature Gran # (Auto) Neut # (Auto) Lymph # (Auto) [place] # (Auto) Eos # (Auto) Baso # (Auto) Sodium Potassium Chloride Carbon Dioxide Anion Gap BUN Creatinine Est Cr Clr Drug Dosing Est GFR ( Amer) Est GFR (Non-Af Amer) BUN/Creatinine Ratio Glucose Fasting Glucose 94 Calcium Total Bilirubin AST ALT Alkaline Phosphatase Total Protein Albumin Globulin Albumin/Globulin Ratio Triglycerides 173 H Cholesterol 193 LDL Cholesterol, Calc 114 VLDL Cholesterol, Calc 35 HDL Cholesterol 44 Cholesterol/HDL Ratio 4 TSH Urine Color Urine Appearance Urine pH Ur Specific [place] Urine Protein Urine Glucose (UA) Urine Ketones Urine Blood Urine Nitrite Urine Bilirubin Urine Urobilinogen Ur Leukocyte Esterase Urine WBC (Auto) Urine RBC (Auto) U Hyaline Cast (Auto) U Epithel Cells (Auto) Urine Bacteria (Auto) Amorphous Sediment Salicylates Urine Opiates Screen Ur Methadone, Qual Acetaminophen Urine Barbiturates Ur Phencyclidine (PCP) U Amphetamin/Meth Scrn MDMA (Ecstasy) Screen U Benzodiazepines Scrn Ur Cocaine Metabolite U Marijuana (THC) Screen Ethyl Alcohol mg/dL Hospital Course (1) Depression: 10/12/19 -The patient has been admitted to the [facility] psychiatric unit and has been placed on suicide observations/precautions. She is being encouraged to participate actively in individual, group, and activity therapies. We are also envisioning family interventions, particularly with her , in part to clarify the current marital situation. Also, the patient's daughter is clearly concerned and involved. -Patient has a history of recurrent depression, but notes that her depression had been in remission for approximately 15 years until she experienced a recurrence of depression, beginning in February. Precipitating or contributing factors appear to include marital difficulties and the fact that, currently, she finds herself living in the home of her adult daughter while her is main taining a residence elsewhere. Also, her 19-year-old son is now dividing his time between the 2 households. -The patient reports that she has been seeking mental health treatment for several months now, but has been unsuccessful in this regard because of insurance and financial limitations. She is open to treatment. The patient reports that she did not respond to "an antidepressant" recently, but it appears that she is referring to aripiprazole that had been prescribed an unspecified dose by a primary care provider. She reminds us that she has financial limitations and asks us to prescribe a drug that she will be able to afford through self-pay. She sets the limit at "15 or $20 a month." -Patient says that she has responded favorably to quetiapine 300 mg at bedtime and is eager to continue this medication. She notes that without quetiapine, and following unsuccessful trials of "several" hypnotic medications, she is very eager to continue quetiapine because "I sleep really well with that now and, also, I think it does help with my anxiety." She reports that she is not experiencing excess sedation in the mornings. -We will begin venlafaxine ER 37.5 mg a day and titrate as indicated and tolerated. (This medication can be purchased at [employer] for $15 for a 30-day supply). 10/12 - Will continue current medication regimen - we discussed continuing 37.5mg venlafaxine through tomorrow morning, but possibly offering an afternoon dose of the same if she continues to tolerate the medication - Continue quetiapine 300mg qHS for sleep, but also likely to target delusional/paranoid thoughts daughter is reporting but patient is denying - Pt aware of order for fasting glucose and lipid panel tomorrow morning, states she is not aware of these labs being checked recently - Pt denies suicidality at this time, agreeable with scheduling a family meeting with her daughter 10/13 - Titrating venlafaxine to 75mg today, after adding an afternoon dose of 37.5mg today. Pt will receive 75mg qAM starting tomorrow morning - Continue quetiapine 300mg qHS for sleep - Fasting glucose and lipid panel reviewed: glucose - 94, triglycerides - 173, total cholesterol - 193, LDL - 114, HDL - 44 - Pt participated in family meeting with her daughter last evening - daughter continues to reference what she believes to be delusional thoughts prior to patient's hospitalization, though these have not been overtly observed on the unit - continue to monitor, quetiapine can be titrated as indicated or alternative agents can be discussed. Daughter did not provide any clear history significant for previous manic/hypomanic presentations that would suggest more of a bipolar presentation. 10/14 -Daughter did not describe delusions and no delusional thoughts observed here. Continue quetiapine and titrate venlafaxine XR to target depression. -Referred for case management through the [facility] and will need outpatient psychiatric care and therapy. -Work on discharge safety planning. 10/15 -Follow-up at [facility] for outpatient mental health treatment, and with her case checker for assistance with services/supports and referral to therapy once MA is approved. -She would likely benefit from a higher dose of venlafaxine XR, can continue titration as an outpatient. (2) Anxiety: 10/11 -The patient reports a history of anxiety that she feels is to some degree independent of her depression. She acknowledges anxious distress within the context of depression, but also notes that at other times in her life she has experienced generalized anxiety symptoms or a tendency to react to various stressors with anxiety that is possibly out of proportion to the nature of the stressors. -We are starting the patient on venlafaxine ER 37.5 mg and will titrate accordin gly. Hopefully this medication will help with anxiety. Options will include adding an anxiolytic, such as buspirone, and she has also been offered as needed hydroxyzine during her stay. 10/13 - Pt has been utilizing frequent dosing of hydroxyzine, though has difficulty clearly articulating anxious thoughts - Titrating venlafaxine to a total of 75mg today, increasing AM dose to 75mg tomorrow 10/15 - Patient reports hydroxyzine has beneficial for anxiety and sleep, so will issue a prescription for short-term use while her antidepressant is being further titrated. She has been tolerating it well here, and reviewed potential side effects. (3) Threatening suicide: 10/12/19 -Patient acknowledges that she has had passive thoughts of , without any specific suicidal plan or intent. She does acknowledge that she has recently threatened suicide to her daughter, but asserts that this threat was not genuine and, instead, was born of frustration and some irritation with her daughter whom she experiences as being somewhat overbearing. -Patient is being monitored with suicide precautions on a locked inpatient unit. She is kreon for safety on the unit and assures us that she will notify us if suicidal plan or intent emerges. 10/12 - Pt denies SI today, but ongoing questioning of if patient is minimizing her symptoms at this time - Will need family meeting scheduled with daughter and completion of safety plan for mitigation of risk factors 10/13 - Continues to deny SI, but affect remains very depressed and patient continues to endorse chronic hopelessness (4) Abnormal urinalysis: 10/13 - Culture grew multiple organisms, likely skin [place]; no indication for treatment at this time Mental Health & Subst Abuse Tx Psychiatrist Name of Psychiatrist: [facility] Psych[facility]rist's Date of Appointment with Psychiatrist: 11/01/19 Time of Appointment with Psychiatrist: 9:00am Psychiatric Appointment Comment: this will be telehealth, they will call you closer to appt to get more info Therapist Name of Therapist: None Criminal Justice Instructor Name of Criminal Justice Instructor: [facility] Phone Number for Criminal Justice Instructor: [phone] Case Management Appointment Comment: records faxed for [facility] referral Post Discharge Appointments Primary Care Physician Name Of Family Doctor: [facility] Smoking Cessation Counseling Tobacco Cessation Medication Prescribed at Discharge: Not Applicable/Non-Smoker Contact Information Discharge Discharge [address]: [address] [place] [address] Discharge Plan Discharge Items Patient Disposition: Home - Self-Care Reason For Visit: SUICIDAL IDEATION W/ PLAN Discharge Diagnosis: Depression Anxiety Activity: Per Instructions section Non-emergency contact: Primary Care Provider, Psychiatrist, Therapist and Doctor Of Radiology Call non-emergency contact if: you have any medication questions and your symptoms worsen Follow-up/Referrals: PCP,NO [Primary Care Provider] - Diet: Regular Addtl Attending Provider Instructions: SPECIAL CARE INSTRUCTIONS: 1. Follow through with your scheduled aftercare appointments. If unable to keep an appointment, please call to reschedule. --Your Medical Assistance application is still being processed. You have been referred to [facility] office for case management and they will assist you to arrange outpatient therapy at [facility]. 2. Take your medication only as prescribed. Medication should not be changed or stopped without the approval of your doctor. In the event of worsening symptoms or concerns about side effects, contact your doctor immediately. 3. Utilize new healthy coping skills, anger management skills, and stress management skills learned during your hospitalization. Journal feelings and process them with a support person. Identify stressors or situations that may result in relapse, deterioration or inappropriate behaviors and develop a plan to deal with those issues. 4. If your coping skills are ineffective and you are in crisis, contact your outpatient providers for direction. If unable to reach your providers, please call the CAN HELP LINE AT or go to the closest Emergency Room. 5. Avoid alcohol and un-prescribed drugs. 6. You have been provided with the Mental Health Advance Directives Pamphlet for your review. AFTERCARE APPOINTMENTS: * Please call your insurance company prior to your scheduled appointment to confirm your aftercare providers are covered. Take your insurance information to your appointments. WHO TO CALL AND WHEN: Medical Emergencies: For questions or emergencies related to your hospital stay, please contact the Inpatient Behavioral Health Unit at [phone]. A psychiatric secretary is on-call 27/12 for the Behavioral Health Unit for emergencies At any time you feel your situation is an emergency, you may also call 911 immediately. Your Doctors Instructions noted above were prepared by provider Lyndsay Vaughn MD. Pending Studies at Discharge: No Stand-Alone Forms: My [facility] Extra, Smoking Cessation Medications and DC Order Prescriptions: New venlafaxine 75 mg Capsule,Extended Release 24hr 75 mg PO QAM Qty: 30 RF: 0 hydroxyzine HCl 25 mg Tablet 25 mg PO TID PRN (Reason: anxiety) Qty: 60 RF: 0 hydroxyzine HCl 50 mg tablet 50 mg PO HSZ PRN (Reason: insomnia) Qty: 30 RF: 0 Continued quetiapine [Seroquel] 300 mg Tablet 300 mg PO HS RF: 0 Discharge Orders: Discharge Order (Routine); Ordered 10/16/19 Ordered By: Lyndsay Vaughn Admission Data Admit Date/Time: 10/12/19 13:55 Attending Provider: Lyndsay Vaughn Admit Provider: Milton Isidro Primary Care Provider: PCP,NO Other Interventions: PSY Interdisciplinary Discharge Planning Last Done: 10/15/19 14:55 Coding Level of Care Code 55506 D/C day mgmt > 30 min Diagnoses Depression F32.9 Depression Type: unspecified Anxiety F41.9 Threatening suicide R45.851 Abnormal urinalysis R82.90
== END 2019-10-16 13:00 | disposition home or self-care (01) | DRG 885 ==
LOC: ED 08:43 → 3S 13:52 → SUATTDRO 13:55 → 3S 13:55

== ENCOUNTER 2019-11-11 20:04 | Inpatient (IN) ==
[2019-11-11] MEDS ORDERED: LORazepam 1 MG TAB PO STA (20:34)
--- NOTE | 2019-11-11 20:39 | Emergency Department Note ---
History of Present Illness General Chief complaint: Mental Health Evaluation Time Seen by Provider: 11/11/19 20:23 Source: patient and other ([employer] employee) Mode of arrival: other (Police) History of Present Illness Provider complaint: Depression Onset (ago): day(s) Location: head Severity: severe Pain Consistency: + constant Quality: + other (Hitting herself in the face and telling her that she did not want to live anymore) Relieved By: + none Associated symptoms: no chest pain, no cough, no fever/chills, no headaches, no nausea/vomiting and no shortness of breath This is a 49-year-old female with a history of depression presenting for mental health evaluation. Patient was brought in by police. The daughter called the police because the patient was hitting herself in the face and crying. She disappeared for 4 hours and no one can find her. Eventually the daughter was able to find her while driving around. She had apparently texted her stating that she did not want to live anymore. She does admit to feeling very depressed but denies making suicidal statements. She states she was admitted to the hospital last month but it did not help her in any way. She states she is compliant with her medications. She denies any headache, chest pain, shortness of breath, fever, cough or cold symptoms or known COVID exposure. Home Medications Home Medications Medication Instructions Recorded Confirmed Type quetiapine [Seroquel] 300 mg PO HS 09/29/19 11/11/19 History hydroxyzine HCl 50 mg PO HSZ PRN #30 tab 10/16/19 11/11/19 Rx venlafaxine 75 mg PO QAM #30 cap 10/16/19 11/11/19 Rx Allergies Allergy/AdvReac Type Severity Reaction Status Date / Time No Known Allergies Allergy Verified 10/12/19 09:15 Past Med/Surg History Medical History Anxiety (Acute) Bronchitis (Acute) Depression (Acute) Family History Other Diabetes Social History Preferred Language: Croatian Communication Ability: Effective Fibrous Wallboard Inspector Required: No Beliefs That Will Affect Care: None marital status: Current Living Situation: Spouse current occupational status: employed Feels Safe at Home: Yes Smoking Status: Never smoker Review of Systems See HPI for pertinent positives & negatives. and A total of 10 systems reviewed and were otherwise negative Physical Exam Vital Signs Vital Signs - 24 hr 11/11/19 20:08 11/11/19 20:14 11/11/19 22:10 Temperature 36.4 C L Temperature Source Oral Pulse Rate 11 L Pulse Rate [Radial] 98 H Pulse Rhythm [Radial] Regular Pulse Strength [Radial] Normal Respiratory Rate 22 22 18 Respiratory Effort / Characteristics Non-Labored Spontaneous Respiratory Depth Normal Normal Respiratory Pattern Regular Regular Blood Pressure 132/90 Blood Pressure [Left Arm] 132/91 123/89 Blood Pressure Mean 104 Blood Pressure Mean [Left Arm] 104 100 Blood Pressure Position [Left Arm] Sitting Pulse Oximetry 97 97 99 Oxygen Delivery Method Room Air Room Air Room Air Sepsis Recent Fever Within 48 Hours No Sepsis Action Taken by Nursing No Action Required 11/11/19 23:55 Temperature Temperature Source Pulse Rate Pulse Rate [Radial] 96 H Pulse Rhythm [Radial] Pulse Strength [Radial] Respiratory Rate 20 Respiratory Effort / Characteristics Non-Labored Spontaneous Respiratory Depth Normal Respiratory Pattern Blood Pressure Blood Pressure [Left Arm] 119/91 Blood Pressure Mean Blood Pressure Mean [Left Arm] 100 Blood Pressure Position [Left Arm] Pulse Oximetry 97 Oxygen Delivery Method Room Air Sepsis Recent Fever Within 48 Hours Sepsis Action Taken by Nursing Constitutional: Vital signs reviewed. Eyes: Pupils are equal round reactive to light. Conjunctiva are noninjected. ENT: Pharynx is clear without erythema or exudate. Mucous membranes are moist. Neck supple without meningeal signs. Respiratory: Clear to auscultation bilaterally. Breath sounds are equal bilaterally. Cardiovascular: Regular rate and rhythm. No rubs or gallops. GI: Soft, nondistended and nontender. Bowel sounds are present. Musculoskeletal: No peripheral edema. No lower extremity tenderness. Integumentary: No cyanosis. or jaundice. Neurological: The patient is awake and alert. No focal deficits. Psychiatric: Depressed and anxious. The patient is crying throughout the exam. Course Administered Medications Discontinued Medications Lorazepam (Ativan) 1 mg PO NOW STA Stop: 11/11/19 20:35 Last Admin: 11/11/19 20:44 Dose: 1 mg Documented by: [id number] Quetiapine Fumarate (Seroquel) 100 mg PO NOW STA Stop: 11/12/19 00:15 Last Admin: 11/12/19 00:30 Dose: 100 mg Documented by: [id number] Medical Decision Making Differential Diagnosis Mood disorder, suicidal ideation, drug abuse, toxidrome, anxiety Medical Records Attestation: I reviewed the patient's medical records. The patient was admitted to the psychiatric unit for depression last month. Home Medications Current Medication List: was personally reviewed by me Laboratory Data Attestation: I reviewed the patient's lab results. Result diagrams: 11/11/19 20:46 11/11/19 20:46 Lab Results 11/11/19 11/11/19 11/11/19 Range/Units 20:46 20:46 20:46 WBC 16.17 H (4.8-10.8) K/uL RBC 3.96 L (4.2-5.4) M/uL Hgb 12.9 (12.0-16.0) g/dL Hct 37.1 (37-47) % MCV 93.7 (80-100) fL MCH 32.6 (25-34) pg MCHC 34.8 (32-36) g/dL RDW Std Deviation 45.0 (36.4-46.3) fL RDW Coeff of Deirdre 13.1 (11.5-14.5) % Plt Count 309 (130-400) K/uL MPV 10.2 (7.4-10.4) fL Immature Gran % (Auto) 0.3 % Neut % (Auto) 71.2 % Lymph % (Auto) 18.1 % [place] % (Auto) 9.6 % Eos % (Auto) 0.6 % Baso % (Auto) 0.2 % Immature Gran # (Auto) 0.05 H (0.00-0.02) K/uL Neut # (Auto) 11.50 H (1.4-6.5) K/uL Lymph # (Auto) 2.93 (1.2-3.4) K/uL [place] # (Auto) 1.55 H (0.11-0.59) K/uL Eos # (Auto) 0.10 (0-0.5) K/uL Baso # (Auto) 0.04 (0-0.2) K/uL Sodium 135 L (136-145) mmol/L Potassium 3.5 (3.5-5.1) mmol/L Chloride 103 (98-107) mmol/L Carbon Dioxide 20 L (21-32) mmol/L Anion Gap 12.0 H (3-11) BUN 16 (7-18) mg/dl Creatinine 1.25 H (0.6-1.2) mg/dl Est Cr Clr Drug Dosing 58.1 ml/min Est GFR ( Amer) 58.9 Est GFR (Non-Af Amer) 50.8 BUN/Creatinine Ratio 12.6 (10-20) Glucose 135 H (70-99) mg/dl Calcium 9.1 (8.5-10.1) mg/dl Total Bilirubin 0.6 (0.2-1) mg/dl AST 11 L (15-37) U/L ALT 20 (12-78) U/L Alkaline Phosphatase 128 H (45-117) U/L Total Protein 8.1 (6.4-8.2) gm/dl Albumin 4.2 (3.4-5.0) gm/dl Globulin 3.9 (2.5-4.0) gm/dl Albumin/Globulin Ratio 1.1 (0.9-2) TSH 1.510 (0.300-4.500) uIu/ml Urine Color Urine Appearance (Clear) Urine pH (4.5-7.5) Ur Specific Schroeder (1.000-1.030) Urine Protein (Negative) Urine Glucose (UA) (Negative) Urine Ketones (Negative) Urine Blood (Negative) Urine Nitrite (Negative) Urine Bilirubin (Negative) Urine Urobilinogen (Negative) Ur Leukocyte Esterase (Negative) Urine WBC (Auto) (0-5) /hpf Urine RBC (Auto) (0-4) /hpf U Hyaline Cast (Auto) (0-5) /lpf U Epithel Cells (Auto) (0-5) /lpf Urine Bacteria (Auto) (Negative) Granular Casts (0) /lpf POC Ur Test (NEG) Salicylates < 1.7 L (2.8-20) mg/dl Urine Opiates Screen (Neg) Ur Methadone, Qual (Neg) Acetaminophen 4 L (10-30) ug/ml Urine Barbiturates (Neg) Ur Phencyclidine (PCP) (Neg) U Amphetamin/Meth Scrn (Neg) MDMA (Ecstasy) Screen (Neg) U Benzodiazepines Scrn (Neg) Ur Cocaine Metabolite (Neg) U Marijuana (THC) Screen (Neg) Ethyl Alcohol mg/dL (0-3) mg/dl 11/11/19 11/11/19 11/11/19 Range/Units 20:46 21:30 21:30 WBC (4.8-10.8) K/uL RBC (4.2-5.4) M/uL Hgb (12.0-16.0) g/dL Hct (37-47) % MCV (80-100) fL MCH (25-34) pg MCHC (32-36) g/dL RDW Std Deviation (36.4-46.3) fL RDW Coeff of Deirdre (11.5-14.5) % Plt Count (130-400) K/uL MPV (7.4-10.4) fL Immature Gran % (Auto) % Neut % (Auto) % Lymph % (Auto) % [place] % (Auto) % Eos % (Auto) % Baso % (Auto) % Immature Gran # (Auto) (0.00-0.02) K/uL Neut # (Auto) (1.4-6.5) K/uL Lymph # (Auto) (1.2-3.4) K/uL [place] # (Auto) (0.11-0.59) K/uL Eos # (Auto) (0-0.5) K/uL Baso # (Auto) (0-0.2) K/uL Sodium (136-145) mmol/L Potassium (3.5-5.1) mmol/L Chloride (98-107) mmol/L Carbon Dioxide (21-32) mmol/L Anion Gap (3-11) BUN (7-18) mg/dl Creatinine (0.6-1.2) mg/dl Est Cr Clr Drug Dosing ml/min Est GFR ( Amer) Est GFR (Non-Af Amer) BUN/Creatinine Ratio (10-20) Glucose (70-99) mg/dl Calcium (8.5-10.1) mg/dl Total Bilirubin (0.2-1) mg/dl AST (15-37) U/L ALT (12-78) U/L Alkaline Phosphatase (45-117) U/L Total Protein (6.4-8.2) gm/dl Albumin (3.4-5.0) gm/dl Globulin (2.5-4.0) gm/dl Albumin/Globulin Ratio (0.9-2) TSH (0.300-4.500) uIu/ml Urine Color Yellow Urine Appearance Cloudy A (Clear) Urine pH 5.0 (4.5-7.5) Ur Specific [place] 1.017 (1.000-1.030) Urine Protein Trace H (Negative) Urine Glucose (UA) Negative (Negative) Urine Ketones 1+ H (Negative) Urine Blood Negative (Negative) Urine Nitrite Negative (Negative) Urine Bilirubin Negative (Negative) Urine Urobilinogen Negative (Negative) Ur Leukocyte Esterase 2+ H (Negative) Urine WBC (Auto) >30 H (0-5) /hpf Urine RBC (Auto) 5-10 H (0-4) /hpf U Hyaline Cast (Auto) >30 H (0-5) /lpf U Epithel Cells (Auto) >30 H (0-5) /lpf Urine Bacteria (Auto) 2+ H (Negative) Granular Casts 5-10 H (0) /lpf POC Ur Test (NEG) Salicylates (2.8-20) mg/dl Urine Opiates Screen Neg (Neg) Ur Methadone, Qual Neg (Neg) Acetaminophen (10-30) ug/ml Urine Barbiturates Neg (Neg) Ur Phencyclidine (PCP) Neg (Neg) U Amphetamin/Meth Scrn Neg (Neg) MDMA (Ecstasy) Screen Neg (Neg) U Benzodiazepines Scrn Neg (Neg) Ur Cocaine Metabolite Neg (Neg) U Marijuana (THC) Screen Neg (Neg) Ethyl Alcohol mg/dL < 3.0 (0-3) mg/dl 11/11/19 Range/Units 21:30 WBC (4.8-10.8) K/uL RBC (4.2-5.4) M/uL Hgb (12.0-16.0) g/dL Hct (37-47) % MCV (80-100) fL MCH (25-34) pg MCHC (32-36) g/dL RDW Std Deviation (36.4-46.3) fL RDW Coeff of Deirdre (11.5-14.5) % Plt Count (130-400) K/uL MPV (7.4-10.4) fL Immature Gran % (Auto) % Neut % (Auto) % Lymph % (Auto) % [place] % (Auto) % Eos % (Auto) % Baso % (Auto) % Immature Gran # (Auto) (0.00-0.02) K/uL Neut # (Auto) (1.4-6.5) K/uL Lymph # (Auto) (1.2-3.4) K/uL [place] # (Auto) (0.11-0.59) K/uL Eos # (Auto) (0-0.5) K/uL Baso # (Auto) (0-0.2) K/uL Sodium (136-145) mmol/L Potassium (3.5-5.1) mmol/L Chloride (98-107) mmol/L Carbon Dioxide (21-32) mmol/L Anion Gap (3-11) BUN (7-18) mg/dl Creatinine (0.6-1.2) mg/dl Est Cr Clr Drug Dosing ml/min Est GFR ( Amer) Est GFR (Non-Af Amer) BUN/Creatinine Ratio (10-20) Glucose (70-99) mg/dl Calcium (8.5-10.1) mg/dl Total Bilirubin (0.2-1) mg/dl AST (15-37) U/L ALT (12-78) U/L Alkaline Phosphatase (45-117) U/L Total Protein (6.4-8.2) gm/dl Albumin (3.4-5.0) gm/dl Globulin (2.5-4.0) gm/dl Albumin/Globulin Ratio (0.9-2) TSH (0.300-4.500) uIu/ml Urine Color Urine Appearance (Clear) Urine pH (4.5-7.5) Ur Specific [place] (1.000-1.030) Urine Protein (Negative) Urine Glucose (UA) (Negative) Urine Ketones (Negative) Urine Blood (Negative) Urine Nitrite (Negative) Urine Bilirubin (Negative) Urine Urobilinogen (Negative) Ur Leukocyte Esterase (Negative) Urine WBC (Auto) (0-5) /hpf Urine RBC (Auto) (0-4) /hpf U Hyaline Cast (Auto) (0-5) /lpf U Epithel Cells (Auto) (0-5) /lpf Urine Bacteria (Auto) (Negative) Granular Casts (0) /lpf POC Ur Test NEG (NEG) Salicylates (2.8-20) mg/dl Urine Opiates Screen (Neg) Ur Methadone, Qual (Neg) Acetaminophen (10-30) ug/ml Urine Barbiturates (Neg) Ur Phencyclidine (PCP) (Neg) U Amphetamin/Meth Scrn (Neg) MDMA (Ecstasy) Screen (Neg) U Benzodiazepines Scrn (Neg) Ur Cocaine Metabolite (Neg) U Marijuana (THC) Screen (Neg) Ethyl Alcohol mg/dL (0-3) mg/dl Blood Pressure Blood Pressure Findings: Elevated blood pressure Blood Pressure Disposition: Referred to patients primary care provider MDM Narrative I did evaluate the patient as noted above. I did obtain history from the patient as well as the [facility] delegate and casework manager. The patient is crying throughout the interview. Her filled out a 302 petition. I did order a urine analysis. She does appear to have a UTI. I did treat her with Bactrim p.o. I did order and review the patient's blood work as noted in the electronic medical record. White count is elevated at 16,000. Her creatinine is 1.2. I did medically clear the patient. The patient was evaluated by mental health. Patient refused to sign in voluntarily. I did signed a 302. The patient was accepted by [facility] for inpatient psychiatric care. Impression & Plan Mood disorder, Suicidal ideation, UTI (urinary tract infection) Discharge Plan Visit Data Chief Complaint: Mental Health Evaluation ED Provider: Tyler Glasgow Discharge Problem: Mood disorder, Suicidal ideation, UTI (urinary tract infection) Forms Stand Alone Forms: My [facility], Suicide Prevention Resources Prescriptions Prescriptions: No Action quetiapine [Seroquel] 300 mg Tablet 300 mg PO HS RF: 0 venlafaxine 75 mg Capsule,Extended Release 24hr 75 mg PO QAM Qty: 30 RF: 0 hydroxyzine HCl 50 mg tablet 50 mg PO HSZ PRN (Reason: insomnia) Qty: 30 RF: 0 Discharge Problem: UTI (urinary tract infection) Qualifiers: Urinary tract infection type: acute cystitis Hematuria presence: without hematuria Qualified Code(s): N30.00 - Acute cystitis without hematuria
[2019-11-11 21:14] LABS: Basophils # (auto) 0.04 K/uL (0-0.2); Basophils % (auto) 0.2 %; Eosinophils % (auto) 0.6 %; Hematocrit (blood only) 37.1 % (37-47); Hemoglobin 12.9 g/dL (12.0-16.0); Immature Granulocytes # (auto) 0.05 K/uL (0.00-0.02); Immature Granulocytes % (auto) 0.3 %; Lymphocytes # (auto) 2.93 K/uL (1.2-3.4); Lymphocytes % (auto) 18.1 %; Mean Corpuscular Hemoglobin 32.6 pg (25-34); Mean Corpuscular Hgb Conc 34.8 g/dL (32-36); Mean Corpuscular Volume 93.7 fL (80-100); Mean Platelet Volume 10.2 fL (7.4-10.4); Monocytes # (auto) 1.55 K/uL (0.11-0.59); Monocytes % (auto) 9.6 %; Neutrophils % (auto) 71.2 %; Platelet Count 309 K/uL (130-400); RDW Coefficient of Variation 13.1 % (11.5-14.5); Red Blood Count 3.96 M/uL (4.2-5.4); White Blood Count 16.17 K/uL (4.8-10.8)
[2019-11-11 21:35] LABS: Acetaminophen 4 ug/ml (10-30); Albumin Level 4.2 gm/dl (3.4-5.0); BUN Creatinine Ratio 12.6 (10-20); Calcium 9.1 mg/dl (8.5-10.1); Creatinine Clr Calc Pharmacy 58.1 ml/min; Est GFR (African American) 58.9; Est GFR (Non-African American) 50.8; Potassium 3.5 mmol/L (3.5-5.1); Salicylate < 1.7 mg/dl (2.8-20)
[2019-11-11 21:46] LABS: Albumin Globulin Ratio 1.1 (0.9-2); Bilirubin,Total 0.6 mg/dl (0.2-1); Globulin 3.9 gm/dl (2.5-4.0); Thyroid Stimulating Hormone 1.51 uIu/ml (0.300-4.500); Total Protein 8.1 gm/dl (6.4-8.2)
[2019-11-11 21:57] LABS: Amphetamines+Metham, Urine Neg (Neg); Barbiturates, Urine Neg (Neg); Benzodiazepine, Urine Neg (Neg); Cocaine, Urine Neg (Neg); MDMA (Ecstacy), Urine Neg (Neg); Methadone, Urine Neg (Neg); Opiate, Urine Neg (Neg); Phencyclidine, Urine Neg (Neg)
[2019-11-11 22:01] LABS: Appearance Urine Cloudy (Clear); Bacteria Urine Automated 2+ (Negative); Bilirubin Urine Negative (Negative); Blood Urine Negative (Negative); Color Urine Yellow; Epithelial Cell Urine Auto >30 /lpf (0-5); Glucose Urine UA Negative (Negative); Ketones Urine 1+ (Negative); Leukocyte Esterase Urine 2+ (Negative); Nitrite Urine Negative (Negative); Protein Urine Trace (Negative); Specific Gravity Urine 1.017 (1.000-1.030); Urobilinogen Urine Negative (Negative); WBC Urine Automated >30 /hpf (0-5)
[2019-11-11 22:23] LABS: Cast Urine Automated >30 /lpf (0-5)
[2019-11-12] MEDS ORDERED: QUETIAPINE FUMARATE 200 MG TAB PO STA (00:08)
[2019-11-12] MEDS ORDERED: QUETIAPINE FUMARATE 100 MG TABLET PO STA (00:14)
[2019-11-12] MEDS ORDERED: SULFAMETHOXAZOLE/TRIMETHOPRIM DS 800/160MG TAB PO ONE (00:33)
[2019-11-12] MEDS ORDERED: ALUMINUM/MAGNESIUM SUSP 30 ML UDC PO PRN (01:04)
[2019-11-12] MEDS ORDERED: MAGNESIUM HYDROXIDE SUSP 30 ML UDC PO PRN (01:04)
[2019-11-12] MEDS ORDERED: BISMUTH SUBSALICYLATE PER ML OMNICELL CHARGE PO PRN (01:04)
[2019-11-12] MEDS ORDERED: ACETAMINOPHEN 325 MG TAB PO PRN (01:04)
[2019-11-12] MEDS ORDERED: SODIUM CHLORIDE 0.65% NA SOLN 45 ML (OCEAN) PRN (01:04)
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
[2019-11-12] MEDS: SULFAMETHOXAZOLE/TRIMETHOPRIM DS 800/160MG TAB PO SCH ×2 (08:34→22:05)
[2019-11-12] MEDS ORDERED: VENLAFAXINE HCL XR 75 MG CAPXR PO SCH (09:00)
[2019-11-12] MEDS: LORazepam 1 MG TAB PO PRN ×2 (10:13→20:17)
[2019-11-12] MEDS ORDERED: VENLAFAXINE HCL XR 37.5 MG CAPXR PO ONE (11:00)
[2019-11-12] MEDS: QUETIAPINE FUMARATE 300 MG TABLET PO SCH (22:06)
[2019-11-13] MEDS: SULFAMETHOXAZOLE/TRIMETHOPRIM DS 800/160MG TAB PO SCH ×2 (08:45→21:23)
[2019-11-13] MEDS: VENLAFAXINE HCL XR 150 MG CAPXR PO SCH (08:45)
[2019-11-13] MEDS: LORazepam 1 MG TAB PO PRN ×3 (09:00→21:23)
--- NOTE | 2019-11-13 14:45 | Psychiatric Progress Note ---
Date of Service November 13, 2019 Impression / Recommendations Impression 49 yo female with recent hospitalization for depression presents with worsening mood and likely progression to major depression with pf as is guarded about possible delusions about and hell. She has multiple vegetative symptoms of depression and appears rather slowed cognitively and/or internally preoccupied. (1) Major depressive disorder, recurrent episode with atypical features: The patient was admitted to the [facility] ([facility] mental health unit) on q15 min checks (behavioral with suicide precautions) for safety. The patient will participate in group, recreational, and milieu therapies and will be offered additional individual and family sessions as clinically appropriate. Risks/benefits/alternatives re: her current medications. Discussion included but was not limited to need for monitoring for metabolic and TD with atypicals. She agrees to continue Seroquel and titrate Effexor XR to address depression. 11/12 - Pt tolerates increased dose of Effexor XR without side effects today. Further medication adjustment will be considered if Effexor XR 150 mg doesn't relieve her symptoms well. - Will get TRUNG's for her and her daughter to get collaterals. - Encouraged to attend and participate in groups. - Fasting lipid profile was done about 1 month ago when she was hospitalized last month with slightly elevated TG, 173, and it won't be obtained this time. - Will attempt to arrange family meeting with her and her daughter when she gets more stable and aftercare, including psychiatrist, therapist, or/and case maker, will be set up. (2) UTI (urinary tract infection): Bactrim DS started in the ED. Complete 5 day course. Inventory Assets Strengths: family involvement, is taking medication Needs: therapy/compliance with outpatient plan. Risk Factors Assessment : Yes Do You Have Access To A Gun?: No Mental Health Diagnoses: Yes Substance Use Disorders: No Previous Attempt: No Family History of Suicide: No Previous Psychiatric Hospitalization: Yes Protective Factors Assessment Sabianist Beliefs: Yes : Yes Employed: No Supportive Family: Yes Interval History Chief Complaint " Same thing happened again". Review of Systems Notes Constitutional: denied cardiovascular: denied Respiratory: denied GI: denied Neurologic: denied Psychiatric: denies symptoms other than stated above Remainder of 10 body systems also reviewed and denied other than noted above. Sleep Information Total Hours of Sleep: 8 Sleep Comments: pt on q-15 minute checks Meal Information Percent Meal Consumed - Breakfast: 25 Percent Meal Consumed - Lunch: 100 Percent Meal Consumed - Dinner: 100 Subjective Subjective Patient was seen & assessed and interval progress reviewed with nursing and social work. Medical staff reports that she has been isolative in her room mostly, refusing attending or participating in programmings in this unit. Has been asking for as needed Ativan for increased anxiety. Patient was seen today to assess progress since admission. Patient reports that the same thing happened to her. She was admitted for the same reason in this unit from October 11 through October 15 this year and states that she has not followed up with aftercare as scheduled because she just forgot about that. She does not have any idea that she has medical assistance and seems to be surprised when it was informed her. She does not want to discuss anything with me today, saying "everyone thinks I am crazy when I talk about my problems." She reports that she had a similar episode in 2003 when she denied God but God healed her eventually after giving her a warning that he would not forgive her again if it happes gain. Last February, she denied God again because she could not trust her due to their marital issues. And she could feel God has been punishing her physically and mentally. Physically she gains more weight regardless of food consumption and mentally she suffers from negative thoughts. Since February last year, she has been having bad thoughts regarding the hell and when she was asked further explanations about the hell, she describes the hell is pitchy black, in fire, and smells horrible without any break. Her thoughts have been consistent since then and they have been getting worse recently. She also has been feeling that something bad might happen and has been watching windows all day long when she wakes up in the morning. She could not tolerate the big windows in her apartment in [place] anymore because she does not feel safe and walked to her daughter's house in [place] for 4 hours yesterday to stay with her . However her daughter reported her and she is pretty upset at her right now. When she was asked further about "bad things, "she did not want to discuss that anymore today but the bad things are not about safety concerns such as hurting her. Denies A/V hallucinations. Denies any side effects with increased dose of Effexor XR and she states that she takes Seroquel for sleep States that she does not have any goals during this hospitalization. Patient was increased to attend or participate in groups or activities in this unit while she is hospitalized. Physical Exam Psychiatric Orientation: alert and oriented x 3 Apperance: appropriately dressed and + disheveled Eye Contact: + fair eye contact Motor Behavior: no abnormal motor movements Speech: normal rate/rhythm/volume of speech Affect: + depressed affect and + flat affect Mood: + depressed mood Thought Process: + perseveration (about hell) and + concrete thought process Thought Content: + cognitive distortions Suicidal Thoughts: + reports suicidal thoughts Homicidal Thoughts: denies homicidal thoughts Hallucinations: no auditory hallucinations and no visual hallucinations Cognition: attention grossly intact and language grossly intact Estimated Intelligence: consistent with education level Insight: + impaired insight Judgement: + impaired judgement Vital Signs (Past 24 Hours) Last Vital Signs Temp 36.6 C 11/13/19 06:48 Pulse 106 H 11/13/19 06:48 Resp 18 11/13/19 06:48 BP 102/65 11/13/19 06:48 Pulse Ox 97 11/11/19 23:55 Results & Data ([facility]) Current Inpatient Medications Current Inpatient Medications: Current Inpatient Medications Acetaminophen (Tylenol) 650 mg PO Q4H PRN PRN Reason: Headache or Minor Fever Stop: 12/12/19 01:03 Al Hydrox/Mg Hydrox/Simethicone (Maalox) 30 ml PO Q4H PRN PRN Reason: GI Upset Stop: 12/12/19 01:03 Bismuth Subsalicylate (Kaopectate) 15 ml PO PRN PRN PRN Reason: Loose Stool Stop: 12/12/19 01:03 Hydroxyzine HCl (Vistaril) 50 mg PO HSZ PRN PRN Reason: Insomnia Stop: 12/12/19 01:03 Hydroxyzine HCl (Vistaril) 25 mg PO Q4H PRN PRN Reason: Anxiety Stop: 12/12/19 01:03 Last Admin: 11/13/19 13:38 Dose: 25 mg Documented by: Lorazepam (Ativan) 1 mg PO Q6 PRN PRN Reason: Anxiety/Agitation Stop: 12/12/19 09:52 Last Admin: 11/13/19 09:00 Dose: 1 mg Documented by: Magnesium Hydroxide (Milk Of Magnesia) 30 ml PO DAILY PRN PRN Reason: Constipation Stop: 12/12/19 01:03 Quetiapine Fumarate (Seroquel) 300 mg PO HS BRONWYN Stop: 12/12/19 21:59 Last Admin: 11/12/19 22:06 Dose: 300 mg Documented by: Sodium Chloride ([place] Nasal) 1 - 2 sprays NA PRN PRN PRN Reason: Nasal Dryness/Congestion Stop: 12/12/19 01:03 Trimethoprim/Sulfamethoxazole (Septra Ds 800/160mg Tab) 1 tab PO Q12 BRONWYN Stop: 11/16/19 21:00 Last Admin: 11/13/19 08:45 Dose: 1 tab Documented by: Venlafaxine HCl (Effexor Extended Release) 150 mg PO QAM BRONWYN Stop: 12/13/19 08:59 Last Admin: 11/13/19 08:45 Dose: 150 mg Documented by: Mental Health & Subst Abuse Tx Therapist Name of Therapist: none Utility Agent Name of Utility Agent: none Post Discharge Appointments Primary Care Physician Name Of Family Doctor: Casa Galo, does not recall physician name. (1) UTI (urinary tract infection) Hematuria presence: without hematuria Urinary tract infection type: acute cystitis Qualified Code(s): N30.00 - Acute cystitis without hematuria
[2019-11-13] MEDS: QUETIAPINE FUMARATE 300 MG TABLET PO SCH (21:23)
[2019-11-14] MEDS: SULFAMETHOXAZOLE/TRIMETHOPRIM DS 800/160MG TAB PO SCH ×2 (08:47→21:24)
[2019-11-14] MEDS: VENLAFAXINE HCL XR 150 MG CAPXR PO SCH (08:47)
[2019-11-14] MEDS: LORazepam 1 MG TAB PO PRN ×2 (08:49→17:31)
--- NOTE | 2019-11-14 11:25 | Psychiatric Progress Note ---
Date of Service November 14, 2019 Impression / Recommendations Impression 49 yo female with recent hospitalization for depression presents with worsening mood and likely progression to major depression with pf as is guarded about possible delusions about and hell. She has multiple vegetative symptoms of depression and appears rather slowed cognitively and/or internally preoccupied. (1) Major depressive disorder, recurrent episode with atypical features: The patient was admitted to the [facility] ([facility] mental health unit) on q15 min checks (behavioral with suicide precautions) for safety. The patient will participate in group, recreational, and milieu therapies and will be offered additional individual and family sessions as clinically appropriate. Risks/benefits/alternatives re: her current medications. Discussion included but was not limited to need for monitoring for metabolic and TD with atypicals. She agrees to continue Seroquel and titrate Effexor XR to address depression. 11/12 - Pt tolerates increased dose of Effexor XR without side effects today. Further medication adjustment will be considered if Effexor XR 150 mg doesn't relieve her symptoms well. - Will get TRUNG's for her and her daughter to get collaterals. - Encouraged to attend and participate in groups. - Fasting lipid profile was done about 1 month ago when she was hospitalized last month with slightly elevated TG, 173, and it won't be obtained this time. - Will attempt to arrange family meeting with her and her daughter when she gets more stable and aftercare, including psychiatrist, therapist, or/and case management associate, will be set up. 11/13 -Continue current medication regimen since patient does not have any significant side effects of increased venlafaxine XR. Treatment plan was reviewed with the patient. Patient was informed that we will increase quetiapine to 400 mg within 2 to 3 days to target her psychotic features associated with her depression if she does not show any improvement in her symptoms with the increased dose of Effexor. -Encouraged to attend and participate in groups -Attempt to arrange family meeting with her and/or her daughter when she is more stable. -Patient was also informed that the frequency of Ativan will be every 8 hours to decrease the utilization of benzodiazepine. Risks/benefits/alternatives reviewed re: benzodiazepine use. Discussion included but was not limited to risks of dependence and possible respiratory depression if combined with agents like alcohol or opiates. Patient verbalized understanding but was not happy with this decision. (2) UTI (urinary tract infection): Bactrim DS started in the ED. Complete 5 day course. Inventory Assets Strengths: family involvement, is taking medication Needs: therapy/compliance with outpatient plan. Risk Factors Assessment : Yes Do You Have Access To A Gun?: No Mental Health Diagnoses: Yes Substance Use Disorders: No Previous Attempt: No Family History of Suicide: No Previous Psychiatric Hospitalization: Yes Protective Factors Assessment Roman Catholic Beliefs: Yes : Yes Employed: No Supportive Family: Yes Interval History Chief Complaint " Why do I need to bother to kill myself since I am in the hell already?" Review of Systems Notes Constitutional: denied cardiovascular: denied Respiratory: denied GI: denied Neurologic: denied Psychiatric: denies symptoms other than stated above Remainder of 10 body systems also reviewed and denied other than noted above. Sleep Information Total Hours of Sleep: 8 Sleep Comments: pt on q-15 minute checks Meal Information Percent Meal Consumed - Breakfast: 100 Percent Meal Consumed - Lunch: 100 Percent Meal Consumed - Dinner: 100 Subjective Subjective Patient was seen & assessed and interval progress reviewed with treatment team. Staff report the patient has been refusing almost all the programming except group therapy this morning and she was interacted minimally with peers and pleasant superficially. She rated her mood 4/10 and "apathetic "in the community meeting yesterday. She has been requesting as needed Ativan every 6-8 hours. Patient was seen today to assess progress since admission. She was lying in her bed sleeping but agreed to make conversation for today's assessment. She reports her mood is " inside" and does not note any improvement in her mood or perseveration regarding and the hell. She keeps saying nothing can change her problems. When she was asked about her emotions towards her daughter since she told me she was upset at her yesterday, she says "I love her ". When she was further investigated regarding her suicidal ideation, she states "why do I need to bother to kill myself since I am in the hell already? "When she was reminded that her expressed his concern when she asked him to choke her or she hit herself in the face, she denies she asked him to choke herself but states that she hit herself as "the end of her rope "since there was no hope or nothing could be done out of this frustration. Also states that Ativan has been helping calming her down slightly but she was advised to use Ativan less frequently after discussing about risks of frequent and long-term use of benzodiazepine. She did not look happy with this but she agreed with our plan regarding less frequent benzodiazepine use. She denies any side effects of increased venlafaxine XR and was informed that we might titrate quetiapine further to target her psychotic features associated with MDD. Physical Exam Psychiatric Orientation: alert and oriented x 3 Apperance: + disheveled lying in the bed Eye Contact: + poor eye contact Speech: normal rate/rhythm/volume of speech (soft speech and not voluntary to engage in the conversation) Affect: + depressed affect, + flat affect and + blunted affect Mood: + depressed mood and + dysphoric mood Thought Process: + perseveration (about hell and ) and + concrete thought process Thought Content: + obsessions, + cognitive distortions, + hopelessness and + guilt Suicidal Thoughts: denies suicidal thoughts Homicidal Thoughts: denies homicidal thoughts Hallucinations: no auditory hallucinations and no visual hallucinations Cognition: language grossly intact Estimated Intelligence: consistent with education level Insight: + impaired insight Judgement: + impaired judgement Vital Signs (Past 24 Hours) Last Vital Signs Temp 36.5 C 11/14/19 06:43 Pulse 102 H 11/14/19 06:43 Resp 18 11/14/19 06:43 BP 105/72 11/14/19 06:43 Pulse Ox 97 11/11/19 23:55 Results & Data ([facility]) Current Inpatient Medications Current Inpatient Medications: Current Inpatient Medications Acetaminophen (Tylenol) 650 mg PO Q4H PRN PRN Reason: Headache or Minor Fever Stop: 12/12/19 01:03 Al Hydrox/Mg Hydrox/Simethicone (Maalox) 30 ml PO Q4H PRN PRN Reason: GI Upset Stop: 12/12/19 01:03 Bismuth Subsalicylate (Kaopectate) 15 ml PO PRN PRN PRN Reason: Loose Stool Stop: 12/12/19 01:03 Hydroxyzine HCl (Vistaril) 50 mg PO HSZ PRN PRN Reason: Insomnia Stop: 12/12/19 01:03 Hydroxyzine HCl (Vistaril) 25 mg PO Q4H PRN PRN Reason: Anxiety Stop: 12/12/19 01:03 Last Admin: 11/13/19 13:38 Dose: 25 mg Documented by: Lorazepam (Ativan) 1 mg PO Q8 PRN PRN Reason: Anxiety/Agitation Stop: 12/12/19 09:52 Magnesium Hydroxide (Milk Of Magnesia) 30 ml PO DAILY PRN PRN Reason: Constipation Stop: 12/12/19 01:03 Quetiapine Fumarate (Seroquel) 300 mg PO HS BRONWYN Stop: 12/12/19 21:59 Last Admin: 11/13/19 21:23 Dose: 300 mg Documented by: Sodium Chloride ([place] Nasal) 1 - 2 sprays NA PRN PRN PRN Reason: Nasal Dryness/Congestion Stop: 12/12/19 01:03 Trimethoprim/Sulfamethoxazole (Septra Ds 800/160mg Tab) 1 tab PO Q12 BRONWYN Stop: 11/16/19 21:00 Last Admin: 11/14/19 08:47 Dose: 1 tab Documented by: Venlafaxine HCl (Effexor Extended Release) 150 mg PO QAM [facility] Stop: 12/13/19 08:59 Last Admin: 11/14/19 08:47 Dose: 150 mg Documented by: Mental Health & Subst Abuse Tx Therapist Name of Therapist: none Access Services Assistant Name of Access Services Assistant: none Post Discharge Appointments Primary Care Physician Name Of Family Doctor: Casa Galo, does not recall physician name. (1) UTI (urinary tract infection) Hematuria presence: without hematuria Urinary tract infection type: acute cystitis Qualified Code(s): N30.00 - Acute cystitis without hematuria
[2019-11-14] MEDS: QUETIAPINE FUMARATE 300 MG TABLET PO SCH (21:24)
[2019-11-15] MEDS: VENLAFAXINE HCL XR 150 MG CAPXR PO SCH (09:32)
[2019-11-15] MEDS: SULFAMETHOXAZOLE/TRIMETHOPRIM DS 800/160MG TAB PO SCH ×2 (09:32→21:39)
--- NOTE | 2019-11-15 11:19 | Psychiatric Progress Note ---
Date of Service November 15, 2019 Impression / Recommendations Impression 49 yo female with recent hospitalization for depression presents with worsening mood and likely progression to major depression with pf as is guarded about possible delusions about and hell. She has multiple vegetative symptoms of depression and appears rather slowed cognitively and/or internally preoccupied. (1) Major depressive disorder, recurrent episode with atypical features: The patient was admitted to the [facility] ([facility] mental health unit) on q15 min checks (behavioral with suicide precautions) for safety. The patient will participate in group, recreational, and milieu therapies and will be offered additional individual and family sessions as clinically appropriate. Risks/benefits/alternatives re: her current medications. Discussion included but was not limited to need for monitoring for metabolic and TD with atypicals. She agrees to continue Seroquel and titrate Effexor XR to address depression. 11/12 - Pt tolerates increased dose of Effexor XR without side effects today. Further medication adjustment will be considered if Effexor XR 150 mg doesn't relieve her symptoms well. - Will get TRUNG's for her and her daughter to get collaterals. - Encouraged to attend and participate in groups. - Fasting lipid profile was done when she was hospitalized last month and was notable for slightly elevated TG, 173, and glucose 94. - Will attempt to arrange family meeting with her and her daughter when she gets more stable and aftercare, including psychiatrist, therapist, or/and case therapist, will be set up. 11/13 -Continue current medication regimen since patient does not have any significant side effects of increased venlafaxine XR. Treatment plan was reviewed with the patient. Patient was informed that we will increase quetiapine to 400 mg within 2 to 3 days to target her psychotic features associated with her depression if she does not show any improvement in her symptoms with the increased dose of Effexor. -Encouraged to attend and participate in groups -Attempt to arrange family meeting with her and/or her daughter when she is more stable. -Patient was also informed that the frequency of Ativan will be every 8 hours to decrease the utilization of benzodiazepine. Risks/benefits/alternatives reviewed re: benzodiazepine use. Discussion included but was not limited to risks of dependence and possible respiratory depression if combined with agents like alcohol or opiates. Patient verbalized understanding but was not happy with this decision. 11/14 -Increase venlafaxine XR to 187.5 mg daily to target depression and anxiety, and quetiapine to 400 mg at bedtime to target mood and psychotic symptoms. -Encourage her to be out of bed and participating in treatment. Schedule a family meeting with her . -Coordinate with outpatient clinicians, including [facility] therapist [facility]. (2) UTI (urinary tract infection): Bactrim DS started in the ED. Complete 5 day course. Inventory Assets Strengths: family involvement, is taking medication Needs: therapy/compliance with outpatient plan. Risk Factors Assessment : Yes Do You Have Access To A Gun?: No Mental Health Diagnoses: Yes Substance Use Disorders: No Previous Attempt: No Family History of Suicide: No Previous Psychiatric Hospitalization: Yes Protective Factors Assessment Worship Beliefs: Yes : Yes Employed: No Supportive Family: Yes Interval History Identifying Information GRAZYNA XIE is a 49-year-old F, recently admitted to in October 2019, who has since reconciled with her . She has a history of depression with suicidal ideation, and was admitted on 11/12/19 00:10 on a 302 involuntary commitment for disorganized behavior with SI, though she denies the latter. Chief Complaint " Not good, depression". Review of Systems Sleep Information Total Hours of Sleep: 7.5 Sleep Comments: pt on q-15 minute checks Meal Information Percent Meal Consumed - Breakfast: 100 Percent Meal Consumed - Lunch: 25 Percent Meal Consumed - Dinner: 100 Subjective Subjective Patient was seen & assessed and interval progress reviewed with nursing and social work. Staff reports she is guarded, isolative, and distraught. She continues to report anxiety and depression, and is guarded with staff. She has been isolating in her room and often withdraws to bed. She requested and received Ativan twice yesterday, and had been receiving it 3 times a day prior to that. On my assessment, she has returned to her bed after breakfast, states mood is depressed and hopeless. She says God left her, and she has no hope that treatment will help her. She says she went to some groups, but cannot remember what they were about, and says nothing is helping. She endorses "bad thoughts, dying, going to hell," but feels safe in the hospital. She reports fears that "someone will kill me," but cannot give any further information, and says "can't explain it" when asked. She reports constant anxiety, with worry that "someone will kill me and I will go to hell." She is unable to identify any alleviating factors other than Ativan, and willing to further increase her antidepressant. She is willing to sign in voluntarily, and to schedule a meeting with her . Physical Exam Psychiatric Orientation: alert and cooperative (Partially, but a limited historian, often answering vaguely) Apperance: appropriately dressed and appeared stated age Lying in bed with the covers pulled up, awake. Eye Contact: + poor eye contact Restless movements of legs under the covers Minimal, monotone Affect: + depressed affect, + constricted affect and mood congruent with affect Mood: + depressed mood Thought Process: + concrete thought process Thought Content: + preoccupation, + paranoid, + cognitive distortions, + persecution and + hopelessness Suicidal Thoughts: denies suicidal thoughts But reports fears that she will and go to hell Homicidal Thoughts: denies homicidal thoughts Hallucinations: no auditory hallucinations Cognition: language grossly intact; + recent memory not intact and + attention not intact Insight: + impaired insight Judgement: + impaired judgement Vital Signs (Past 24 Hours) Last Vital Signs Temp 36.5 C 11/15/19 06:41 Pulse 99 H 11/15/19 06:41 Resp 18 11/15/19 06:41 BP 92/63 L 11/15/19 06:41 Pulse Ox 97 11/11/19 23:55 Results & Data ([facility]) Current Inpatient Medications Current Inpatient Medications: Current Inpatient Medications Acetaminophen (Tylenol) 650 mg PO Q4H PRN PRN Reason: Headache or Minor Fever Stop: 12/12/19 01:03 Al Hydrox/Mg Hydrox/Simethicone (Maalox) 30 ml PO Q4H PRN PRN Reason: GI Upset Stop: 12/12/19 01:03 Bismuth Subsalicylate (Kaopectate) 15 ml PO PRN PRN PRN Reason: Loose Stool Stop: 12/12/19 01:03 Hydroxyzine HCl (Vistaril) 50 mg PO HSZ PRN PRN Reason: Insomnia Stop: 12/12/19 01:03 Hydroxyzine HCl (Vistaril) 25 mg PO Q4H PRN PRN Reason: Anxiety Stop: 12/12/19 01:03 Last Admin: 11/13/19 13:38 Dose: 25 mg Documented by: Lorazepam (Ativan) 1 mg PO Q8 PRN PRN Reason: Anxiety/Agitation Stop: 12/12/19 09:52 Last Admin: 11/14/19 17:31 Dose: 1 mg Documented by: Magnesium Hydroxide (Milk Of Magnesia) 30 ml PO DAILY PRN PRN Reason: Constipation Stop: 12/12/19 01:03 Quetiapine Fumarate (Seroquel) 300 mg PO HS BRONWYN Stop: 12/12/19 21:59 Last Admin: 11/14/19 21:24 Dose: 300 mg Documented by: Sodium Chloride ([place] Nasal) 1 - 2 sprays NA PRN PRN PRN Reason: Nasal Dryness/Congestion Stop: 12/12/19 01:03 Trimethoprim/Sulfamethoxazole (Septra Ds 800/160mg Tab) 1 tab PO Q12 BRONWYN Stop: 11/16/19 21:00 Last Admin: 11/15/19 09:32 Dose: 1 tab Documented by: Venlafaxine HCl (Effexor Extended Release) 150 mg PO QAM BRONWYN Stop: 12/13/19 08:59 Last Admin: 11/15/19 09:32 Dose: 150 mg Documented by: Mental Health & Subst Abuse Tx Therapist Name of Therapist: none Digital Assistant Name of Digital Assistant: none Post Discharge Appointments Primary Care Physician Name Of Family Doctor: Casa Galo, does not recall physician name. (1) UTI (urinary tract infection) Hematuria presence: without hematuria Urinary tract infection type: acute cystitis Qualified Code(s): N30.00 - Acute cystitis without hematuria
[2019-11-15] MEDS: LORazepam 1 MG TAB PO PRN (12:06)
[2019-11-15] MEDS: QUETIAPINE FUMARATE 200 MG TAB PO SCH (21:40)
[2019-11-16] MEDS ORDERED: VENLAFAXINE HCL XR 75 MG CAPXR PO SCH (09:00)
[2019-11-16] MEDS: SULFAMETHOXAZOLE/TRIMETHOPRIM DS 800/160MG TAB PO SCH ×2 (09:29→21:41)
[2019-11-16] MEDS: VENLAFAXINE HCL XR 37.5 MG CAPXR PO SCH (09:29)
[2019-11-16] MEDS: VENLAFAXINE HCL XR 150 MG CAPXR PO SCH (09:29)
[2019-11-16] MEDS: LORazepam 1 MG TAB PO PRN ×2 (09:31→19:13)
--- NOTE | 2019-11-16 13:25 | Psychiatric Progress Note ---
Date of Service November 16, 2019 Impression / Recommendations Impression 49 yo female with recent hospitalization for depression presents with worsening mood and likely progression to major depression with pf as is guarded about possible delusions about and hell. She has multiple vegetative symptoms of depression and appears rather slowed cognitively and/or internally preoccupied. The patient responds in the negative when asked about concerns about and Hell, but seems largely preoccupied throughout each encounter. She acknowledges that she is very depressed and, to a lesser extent, anxious. At the same time, she tells us that she is not suicidal, although her family have reported that she has made suicidal statements in the fairly recent past. She indicates that she does not feel that venlafaxine has been helpful to her at the dosage that had been prescribed. However, complicating the situation is the fact that the patient pretty clearly indicates that she has not been adherent with outpatient medications or has only been partially adherent. The expectation is that the patient's depression and anxiety will improve as her dose of venlafaxine is titrated. We will also add bupropion XR 150 mg daily and titrate as indicated. (1) Major depressive disorder, recurrent episode with atypical features: The patient was admitted to the [facility]) on q15 min checks (behavioral with suicide precautions) for safety. The patient will participate in group, recreational, and milieu therapies and will be offered additional individual and family sessions as clinically appropriate. Risks/benefits/alternatives re: her current medications. Discussion included but was not limited to need for monitoring for metabolic and TD with atypicals. She agrees to continue Seroquel and titrate Effexor XR to address depression. 11/12 - Pt tolerates increased dose of Effexor XR without side effects today. Further medication adjustment will be considered if Effexor XR 150 mg doesn't relieve her symptoms well. - Will get TRUNG's for her and her daughter to get collaterals. - Encouraged to attend and participate in groups. - Fasting lipid profile was done when she was hospitalized last month and was notable for slightly elevated TG, 173, and glucose 94. - Will attempt to arrange family meeting with her and her daughter when she gets more stable and aftercare, including psychiatrist, therapist, or/and case preparer and liner, will be set up. 11/13 -Continue current medication regimen since patient does not have any significant side effects of increased venlafaxine XR. Treatment plan was reviewed with the patient. Patient was informed that we will increase quetiapine to 400 mg within 2 to 3 days to target her psychotic features associated with her depression if she does not show any improvement in her symptoms with the increased dose of Effexor. -Encouraged to attend and participate in groups -Attempt to arrange family meeting with her and/or her daughter when she is more stable. -Patient was also informed that the frequency of Ativan will be every 8 hours to decrease the utilization of benzodiazepine. Risks/benefits/alternatives reviewed re: benzodiazepine use. Discussion included but was not limited to risks of dependence and possible respiratory depression if combined with agents like alcohol or opiates. Patient verbalized understanding but was not happy with this decision. 11/14 -Increase venlafaxine XR to 187.5 mg daily to target depression and anxiety, and quetiapine to 400 mg at bedtime to target mood and psychotic symptoms. -Encourage her to be out of bed and participating in treatment. Schedule a family meeting with her . -Coordinate with outpatient clinicians, including case preparer and liner through the [facility]. 11/15 -Dose of venlafaxine XR increased as above. Patient reports that she is not experiencing any identified adverse effects. -Because of the patient's complaint of low energy and depression that has not responded favorably to antidepressant medications, bupropion XR 150 mg daily has been added to the patient's medication regimen and will be titrated as indicated. (2) UTI (urinary tract infection): Bactrim DS started in the ED. Complete 5 day course. Inventory Assets Strengths: family involvement, is taking medication. Motivated to recovery. Needs: therapy/compliance with outpatient plan. Risk Factors Assessment : Yes Do You Have Access To A Gun?: No Mental Health Diagnoses: Yes Substance Use Disorders: No Previous Attempt: No Family History of Suicide: No Previous Psychiatric Hospitalization: Yes Protective Factors Assessment Buddhist Beliefs: Yes : Yes Employed: No Supportive Family: Yes Interval History Identifying Information GRAZYNA XIE is a 49-year-old F, recently admitted to in October 2019, who has since reconciled with her . She has a history of depression with suicidal ideation, and was admitted on 11/12/19 00:10 on a 302 involuntary commitment for disorganized behavior with SI, though she denies the latter. Chief Complaint " Depression". Review of Systems Sleep Information Total Hours of Sleep: 7.5 Sleep Comments: pt on q-15 minute checks Meal Information Percent Meal Consumed - Breakfast: 75 Percent Meal Consumed - Lunch: 100 Percent Meal Consumed - Dinner: 80 Subjective Subjective Patient was seen & assessed and interval progress reviewed with treatment team. I saw the patient individually in order to assess her current mental status, evaluate her response to treatment, coordinate any necessary changes in the patient's medication regimen with the patient, and address issues, questions and concerns that may arise. The patient is not particularly forthcoming and says very little spontaneously. We reviewed the events that have transpired since her last admission to [facility]'s behavioral health unit in October. She acknowledges that she never followed through with the plan for her to enter treatment on an outpatient basis at [place]. She has continued to receive her psychiatric medications from a primary care provider ("C[facility]"), but she indicates that she has not been fully adherent. When asked if she was taking her medications she shrugged her shoulders and then, with hesitation, said "sometimes." In the intercurrent period since her discharge from her most recent previous psychiatric hospitalization the patient and her reconciled and are now living together. As noted during the previous admission, the patient and her had begun to have marital difficulties last year and the problems intensified after they moved from [facility] to the [facility]. The couple then , and their teenage son went to live with the patient's (his father). The patient now reports that her relationship with her has improved significantly, but this has not favorably affected her mood. Symptoms of ongoing depression have reportedly been present since February, and may have improved at the time of her discharge last month, but had not fully resolved and quickly exacerbated upon her return to the community. Specific symptoms noted include depressed mood, anergia, anhedonia, apathy, and insomnia (unless she takes quetiapine at bedtime). Reports from the patient's daughter at the time of her admission to the behavioral health unit last October included to report that the patient had made suicidal statements. The patient currently tells us that she has never had anything other than fleeting thoughts of suicide without any plan or intent. However, when asked about behavior such as walking in hot humid weather for hours at a time, neglecting self-care, and not maintaining adequate nutrition the patient simply looked away and shrugged her shoulders. We reviewed her medications. She says that she recalls taking Prozac many years ago, and was been taking Effexor since her most recent previous admission, together with Seroquel 400 mg at bedtime for sleep. She reports that she does not feel excessively sedated and has no trouble awakening in the morning. Physical Exam Psychiatric Orientation: alert, oriented x 3 and cooperative Apperance: + disheveled Eye Contact: + poor eye contact Motor Behavior: + psychomotor retardation and + tremor Patient speech is generally nonspontaneous. Unless encouraged she generally answers with 1 or 2 words. Her speech is soft and slow. Affect: + depressed affect and + anxious affect Mood: + depressed mood and + anxious mood Thought Process: + concrete thought process Thought Content: reality based without delusions Suicidal Thoughts: denies suicidal thoughts Homicidal Thoughts: denies homicidal thoughts Hallucinations: no auditory hallucinations Cognition: recent memory grossly intact Estimated Intelligence: average estimated intelligence Insight: + limited insight Judgement: + poor judgement Vital Signs (Past 24 Hours) Last Vital Signs Temp 36.6 C 11/16/19 06:48 Pulse 89 11/16/19 06:48 Resp 18 11/16/19 06:48 BP 89/58 L 11/16/19 06:48 Pulse Ox 97 11/11/19 23:55 Results & Data ([facility]) Current Inpatient Medications Current Inpatient Medications: Current Inpatient Medications Acetaminophen (Tylenol) 650 mg PO Q4H PRN PRN Reason: Headache or Minor Fever Stop: 12/12/19 01:03 Al Hydrox/Mg Hydrox/Simethicone (Maalox) 30 ml PO Q4H PRN PRN Reason: GI Upset Stop: 12/12/19 01:03 Bismuth Subsalicylate (Kaopectate) 15 ml PO PRN PRN PRN Reason: Loose Stool Stop: 12/12/19 01:03 Hydroxyzine HCl (Vistaril) 50 mg PO HSZ PRN PRN Reason: Insomnia Stop: 12/12/19 01:03 Hydroxyzine HCl (Vistaril) 25 mg PO Q4H PRN PRN Reason: Anxiety Stop: 12/12/19 01:03 Last Admin: 11/15/19 17:51 Dose: 25 mg Documented by: Lorazepam (Ativan) 1 mg PO Q8 PRN PRN Reason: Anxiety/Agitation Stop: 12/12/19 09:52 Last Admin: 11/16/19 09:31 Dose: 1 mg Documented by: Magnesium Hydroxide (Milk Of Magnesia) 30 ml PO DAILY PRN PRN Reason: Constipation Stop: 12/12/19 01:03 Quetiapine Fumarate (Seroquel) 400 mg PO HS BRONWYN Stop: 12/15/19 21:59 Last Admin: 11/15/19 21:40 Dose: 400 mg Documented by: Sodium Chloride (Trinity Nasal) 1 - 2 sprays NA PRN PRN PRN Reason: Nasal Dryness/Congestion Stop: 12/12/19 01:03 Trimethoprim/Sulfamethoxazole (Septra Ds 800/160mg Tab) 1 tab PO Q12 BRONWYN Stop: 11/16/19 21:00 Last Admin: 11/16/19 09:29 Dose: 1 tab Documented by: Venlafaxine HCl (Effexor Extended Release) 150 mg PO QAM [facility] Stop: 12/16/19 08:59 Last Admin: 11/16/19 09:29 Dose: 150 mg Documented by: Venlafaxine HCl (Effexor Extended Release) 37.5 mg PO QAM [facility] Stop: 12/16/19 08:59 Last Admin: 11/16/19 09:29 Dose: 37.5 mg Documented by: Mental Health & Subst Abuse Tx Therapist Name of Therapist: none Batch Records Clerk Name of Batch Records Clerk: none Post Discharge Appointments Primary Care Physician Name Of Family Doctor: Casa Galo, does not recall physician name. (1) UTI (urinary tract infection) Hematuria presence: without hematuria Urinary tract infection type: acute cystitis Qualified Code(s): N30.00 - Acute cystitis without hematuria
[2019-11-16] MEDS ORDERED: BuPROPion SR 100 MG TABCR PO ONE (13:45)
[2019-11-16] MEDS: QUETIAPINE FUMARATE 200 MG TAB PO SCH (21:42)
[2019-11-17] MEDS: VENLAFAXINE HCL XR 37.5 MG CAPXR PO SCH (09:17)
[2019-11-17] MEDS: BuPROPion XL 150 MG TABCR PO SCH (09:18)
[2019-11-17] MEDS: VENLAFAXINE HCL XR 150 MG CAPXR PO SCH (09:18)
[2019-11-17] MEDS: LORazepam 1 MG TAB PO PRN ×2 (11:17→20:34)
[2019-11-17] MEDS: POLYETHYLENE (MIRALAX) 17 GM PACK PO PRN (12:45)
--- NOTE | 2019-11-17 19:48 | Psychiatric Progress Note ---
Date of Service November 17, 2019 Impression / Recommendations Impression 49 yo female with recent hospitalization for depression presents with worsening mood and likely progression to major depression with pf as is guarded about possible delusions about and hell. She has multiple vegetative symptoms of depression and appears rather slowed cognitively and/or internally preoccupied. The patient responds in the negative when asked about concerns about and Hell, but seems largely preoccupied throughout each encounter. She acknowledges that she is very depressed and, to a lesser extent, anxious. At the same time, she tells us that she is not suicidal, although her family have reported that she has made suicidal statements in the fairly recent past. She indicates that she does not feel that venlafaxine has been helpful to her at the dosage that had been prescribed. However, complicating the situation is the fact that the patient pretty clearly indicates that she has not been adherent with outpatient medications or has only been partially adherent. The expectation is that the patient's depression and anxiety will improve as her dose of venlafaxine is titrated. We will also add bupropion XR 150 mg daily and titrate as indicated. (1) Major depressive disorder, recurrent episode with atypical features: The patient was admitted to the [facility] ([facility]) on q15 min checks (behavioral with suicide precautions) for safety. The patient will participate in group, recreational, and milieu therapies and will be offered additional individual and family sessions as clinically appropriate. Risks/benefits/alternatives re: her current medications. Discussion included but was not limited to need for monitoring for metabolic and TD with atypical. She agrees to continue Seroquel and titrate Effexor XR to address depression. 11/12 - Pt tolerates increased dose of Effexor XR without side effects today. Further medication adjustment will be considered if Effexor XR 150 mg doesn't relieve her symptoms well. - Will get TRUNG's for her and her daughter to get collaterals. - Encouraged to attend and participate in groups. - Fasting lipid profile was done when she was hospitalized last month and was notable for slightly elevated TG, 173, and glucose 94. - Will attempt to arrange family meeting with her and her daughter when she gets more stable and aftercare, including psychiatrist, therapist, or/and foster care case manager, will be set up. 11/13 -Continue current medication regimen since patient does not have any significant side effects of increased venlafaxine XR. Treatment plan was reviewed with the patient. Patient was informed that we will increase quetiapine to 400 mg within 2 to 3 days to target her psychotic features associated with her depression if she does not show any improvement in her symptoms with the increased dose of Effexor. -Encouraged to attend and participate in groups -Attempt to arrange family meeting with her and/or her daughter when she is more stable. -Patient was also informed that the frequency of Ativan will be every 8 hours to decrease the utilization of benzodiazepine. Risks/benefits/alternatives reviewed re: benzodiazepine use. Discussion included but was not limited to risks of dependence and possible respiratory depression if combined with agents like alcohol or opiates. Patient verbalized understanding but was not happy with this decision. 11/14 -Increase venlafaxine XR to 187.5 mg daily to target depression and anxiety, and quetiapine to 400 mg at bedtime to target mood and psychotic symptoms. -Encourage her to be out of bed and participating in treatment. Schedule a family meeting with her . -Coordinate with outpatient clinicians, including foster care case manager through the base service [facility]. 11/15 -Dose of venlafaxine XR increased as above. Patient reports that she is not experiencing any identified adverse effects. -Because of the patient's complaint of low energy and depression that has not responded favorably to antidepressant medications, bupropion sr 100mg then 150mg mg daily has been added to the patient's medication regimen and will be titrated as indicated. 11/16 assessed impact of recent medications adjustments and maintained Meds unchanged for today since first day of Wellbutrin sr 150mg am and just had doses raise of Seroquel and Effexor XR addressed pt's numbness and her AUD and her avoidance aspects as numbing aspects that likely ad to her main complaints while attempting to alleviate them, consider further titrating of Wellbutrin as appropriate. (2) UTI (urinary tract infection): Bactrim DS started in the ED. Complete 5 day course. Inventory Assets Strengths: family involvement, is taking medication. Motivated to recovery. Needs: therapy/compliance with outpatient plan. Risk Factors Assessment : Yes Do You Have Access To A Gun?: No Mental Health Diagnoses: Yes Substance Use Disorders: No Previous Attempt: No Family History of Suicide: No Previous Psychiatric Hospitalization: Yes Protective Factors Assessment Amish Beliefs: Yes : Yes Employed: No Supportive Family: Yes Interval History Identifying Information GRAZYNA XIE is a 49-year-old F, recently admitted to in October 2019, who has since reconciled with her . She has a history of depression with suicidal ideation, and was admitted on 11/12/19 00:10 on a 302 involuntary commitment for disorganized behavior with SI, though she denies the latter. Chief Complaint "[]". Review of Systems Sleep Information Total Hours of Sleep: 7.25 Sleep Comments: pt on q-15 minute checks Meal Information Percent Meal Consumed - Breakfast: 100 Percent Meal Consumed - Lunch: 100 Percent Meal Consumed - Dinner: 100 Subjective Subjective Patient was seen & assessed and interval progress reviewed with [treatment team] [nursing and social work] Physical Exam Psychiatric Orientation: alert, oriented x 3 and cooperative Apperance: appropriately dressed and appeared stated age Eye Contact: + fair eye contact Motor Behavior: no abnormal motor movements and + psychomotor retardation Speech: normal rate/rhythm/volume of speech (soft speech and not voluntary to engage in the conversation) Affect: + flat affect Mood: + anxious mood Thought Content: + preoccupation, + obsessions, + cognitive distortions, reality based without delusions and + hopelessness Suicidal Thoughts: denies suicidal thoughts Homicidal Thoughts: denies homicidal thoughts Hallucinations: no auditory hallucinations and no visual hallucinations Cognition: recent memory grossly intact and language grossly intact; + attention not intact Estimated Intelligence: average estimated intelligence and consistent with education level Insight: + impaired insight Judgement: + impaired judgement Vital Signs (Past 24 Hours) Last Vital Signs Temp 36.6 C 11/17/19 07:13 Pulse 94 H 11/17/19 07:14 Resp 16 11/17/19 07:13 BP 77/53 L 11/17/19 07:14 Pulse Ox 97 11/11/19 23:55 Results & Data ([facility]) Current Inpatient Medications Current Inpatient Medications: Current Inpatient Medications Acetaminophen (Tylenol) 650 mg PO Q4H PRN PRN Reason: Headache or Minor Fever Stop: 12/12/19 01:03 Al Hydrox/Mg Hydrox/Simethicone (Maalox) 30 ml PO Q4H PRN PRN Reason: GI Upset Stop: 12/12/19 01:03 Bismuth Subsalicylate (Kaopectate) 15 ml PO PRN PRN PRN Reason: Loose Stool Stop: 12/12/19 01:03 Bupropion HCl (Wellbutrin-Xl) 150 mg PO QAM [facility]ONWYN Stop: 12/17/19 08:59 Last Admin: 11/17/19 09:18 Dose: 150 mg Documented by: Hydroxyzine HCl (Vistaril) 50 mg PO HSZ PRN PRN Reason: Insomnia Stop: 12/12/19 01:03 Hydroxyzine HCl (Vistaril) 25 mg PO Q4H PRN PRN Reason: Anxiety Stop: 12/12/19 01:03 Last Admin: 11/15/19 17:51 Dose: 25 mg Documented by: Lorazepam (Ativan) 1 mg PO Q8 PRN PRN Reason: Anxiety/Agitation Stop: 12/12/19 09:52 Last Admin: 11/17/19 11:17 Dose: 1 mg Documented by: Magnesium Hydroxide (Milk Of Magnesia) 30 ml PO DAILY PRN PRN Reason: Constipation Stop: 12/12/19 01:03 Polyethylene Glycol (Miralax Powder Packet) 17 gm PO DAILY PRN PRN Reason: Constipation Stop: 12/17/19 12:08 Last Admin: 11/17/19 12:45 Dose: 17 gm Documented by: Quetiapine Fumarate (Seroquel) 400 mg PO HS BRONWYN Stop: 12/15/19 21:59 Last Admin: 11/16/19 21:42 Dose: 400 mg Documented by: Sodium Chloride (Revloc Nasal) 1 - 2 sprays NA PRN PRN PRN Reason: Nasal Dryness/Congestion Stop: 12/12/19 01:03 Venlafaxine HCl (Effexor Extended Release) 150 mg PO QAM [facility]ONWYN Stop: 12/16/19 08:59 Last Admin: 11/17/19 09:18 Dose: 150 mg Documented by: Venlafaxine HCl (Effexor Extended Release) 37.5 mg PO QAM BRONWYN Stop: 12/16/19 08:59 Last Admin: 11/17/19 09:17 Dose: 37.5 mg Documented by: Mental Health & Subst Abuse Tx Therapist Name of Therapist: none Product Marketer Name of Product Marketer: none Post Discharge Appointments Primary Care Physician Name Of Family Doctor: Casa Galo, does not recall physician name. (1) UTI (urinary tract infection) Hematuria presence: without hematuria Urinary tract infection type: acute cystitis Qualified Code(s): N30.00 - Acute cystitis without hematuria
--- NOTE | 2019-11-17 20:04 | Psychiatric Progress Note ---
Date of Service November 17, 2019 Impression / Recommendations Impression 49 yo female with recent hospitalization for depression presents with worsening mood and likely progression to major depression with pf as is guarded about possible delusions about and hell. She has multiple vegetative symptoms of depression and appears rather slowed cognitively and/or internally preoccupied. The patient responds in the negative when asked about concerns about and Hell, but seems largely preoccupied throughout each encounter. She acknowledges that she is very depressed and, to a lesser extent, anxious. At the same time, she tells us that she is not suicidal, although her family have reported that she has made suicidal statements in the fairly recent past. She indicates that she does not feel that venlafaxine has been helpful to her at the dosage that had been prescribed. However, complicating the situation is the fact that the patient pretty clearly indicates that she has not been adherent with outpatient medications or has only been partially adherent. The expectation is that the patient's depression and anxiety will improve as her dose of venlafaxine is titrated. bupropion XR daily added (1) Major depressive disorder, recurrent episode with atypical features: The patient was admitted to the [facility] ([facility] mental health unit) on q15 min checks (behavioral with suicide precautions) for safety. The patient will participate in group, recreational, and milieu therapies and will be offered additional individual and family sessions as clinically appropriate. Risks/benefits/alternatives re: her current medications. Discussion included but was not limited to need for monitoring for metabolic and TD with atypical. She agrees to continue Seroquel and titrate Effexor XR to address depression. 11/12 - Pt tolerates increased dose of Effexor XR without side effects today. Further medication adjustment will be considered if Effexor XR 150 mg doesn't relieve her symptoms well. - Will get TRUNG's for her and her daughter to get collaterals. - Encouraged to attend and participate in groups. - Fasting lipid profile was done when she was hospitalized last month and was notable for slightly elevated TG, 173, and glucose 94. - Will attempt to arrange family meeting with her and her daughter when she gets more stable and aftercare, including psychiatrist, therapist, or/and machine adjuster leader case trim, will be set up. 11/13 -Continue current medication regimen since patient does not have any significant side effects of increased venlafaxine XR. Treatment plan was reviewed with the patient. Patient was informed that we will increase quetiapine to 400 mg within 2 to 3 days to target her psychotic features associated with her depression if she does not show any improvement in her symptoms with the increased dose of Effexor. -Encouraged to attend and participate in groups -Attempt to arrange family meeting with her and/or her daughter when she is more stable. -Patient was also informed that the frequency of Ativan will be every 8 hours to decrease the utilization of benzodiazepine. Risks/benefits/alternatives reviewed re: benzodiazepine use. Discussion included but was not limited to risks of dependence and possible respiratory depression if combined with agents like alcohol or opiates. Patient verbalized understanding but was not happy with this decision. 11/14 -Increase venlafaxine XR to 187.5 mg daily to target depression and anxiety, and quetiapine to 400 mg at bedtime to target mood and psychotic symptoms. -Encourage her to be out of bed and participating in treatment. Schedule a family meeting with her . -Coordinate with outpatient clinicians, including machine adjuster leader case trim through the [facility]. 11/15 -Dose of venlafaxine XR increased as above. Patient reports that she is not experiencing any identified adverse effects. -Because of the patient's complaint of low energy and depression that has not responded favorably to antidepressant medications, bupropion sr 100mg then 150mg mg daily has been added to the patient's medication regimen and will be titrated as indicated. 11/16 assessed impact of recent medications adjustments and maintained Meds unchanged for today since first day of Wellbutrin sr 150mg am and just had doses raise of Seroquel and Effexor XR addressed pt's disconnection as part of her depressive smyptoms, consider f urther titrating of Wellbutrin as appropriate. psychotherapy aspects tied of her main concern attempting to address her connection to God and her sense of that connection being lost and potential to be refound (2) UTI (urinary tract infection): Bactrim DS started in the ED. Complete 5 day course. Inventory Assets Strengths: family involvement, is taking medication. Motivated to recovery. Needs: therapy/compliance with outpatient plan. Risk Factors Assessment : Yes Do You Have Access To A Gun?: No Mental Health Diagnoses: Yes Substance Use Disorders: No Previous Attempt: No Family History of Suicide: No Previous Psychiatric Hospitalization: Yes Protective Factors Assessment Jehovah'S Witness Beliefs: Yes : Yes Employed: No Supportive Family: Yes Interval History Identifying Information GRAZYNA XIE is a 49-year-old F, recently admitted to in October 2019, who has since reconciled with her . She has a history of depression with suicidal ideation, and was admitted on 11/12/19 00:10 on a 302 involuntary commitment for disorganized behavior with SI, though she denies the latter. Chief Complaint "I have lost my connection to GOd and its too late to fix this". Review of Systems Sleep Information Total Hours of Sleep: 7.25 Sleep Comments: pt on q-15 minute checks Meal Information Percent Meal Consumed - Breakfast: 100 Percent Meal Consumed - Lunch: 100 Percent Meal Consumed - Dinner: 100 Subjective Subjective Patient was seen & assessed and interval progress reviewed with nursing and soci al work. pt reports hopelessness and how going to hell since lost her connection with God after her comment that did not trust her and did not trust God. Since then her relationship with her has been repaired. But she reports being punished by God and that she is going to Hell and its too late to reconnect with god. This is a fixed belief that while willing to engage service writer about is unwilling to consider ability to reconnect with God. She felt that prior to that comment of hers that God was present in her life and eat connect to God and that God responded oat her prayers an that this is all lost since then. Pt not willing to consider her disengagement/disconnection as tied to her depressive symptoms that can be treated. She is open to taking her medication and denied s/e to them to date. Physical Exam Psychiatric Orientation: alert, oriented x 3 and cooperative Apperance: appropriately dressed and appeared stated age Eye Contact: good eye contact Motor Behavior: no abnormal motor movements Speech: normal rate/rhythm/volume of speech (soft speech and not voluntary to engage in the conversation) Affect: + constricted affect Mood: + depressed mood and + anxious mood Thought Process: + perseveration (about hell and ) and + concrete thought process Thought Content: + paranoid, + persecution and + hopelessness possible delusion given how fixed her relgious concern is Suicidal Thoughts: denies suicidal thoughts Homicidal Thoughts: denies homicidal thoughts Hallucinations: no auditory hallucinations and no visual hallucinations Cognition: recent memory grossly intact and language grossly intact; + attention not intact Estimated Intelligence: average estimated intelligence and consistent with education level Insight: + impaired insight Judgement: + impaired judgement Vital Signs (Past 24 Hours) Last Vital Signs Temp 36.6 C 11/17/19 07:13 Pulse 94 H 11/17/19 07:14 Resp 16 11/17/19 07:13 BP 77/53 L 11/17/19 07:14 Pulse Ox 97 11/11/19 23:55 Results & Data ([facility]) Current Inpatient Medications Current Inpatient Medications: Current Inpatient Medications Acetaminophen (Tylenol) 650 mg PO Q4H PRN PRN Reason: Headache or Minor Fever Stop: 12/12/19 01:03 Al Hydrox/Mg Hydrox/Simethicone (Maalox) 30 ml PO Q4H PRN PRN Reason: GI Upset Stop: 12/12/19 01:03 Bismuth Subsalicylate (Kaopectate) 15 ml PO PRN PRN PRN Reason: Loose Stool Stop: 12/12/19 01:03 Bupropion HCl (Wellbutrin-Xl) 150 mg PO QAM [facility] Stop: 12/17/19 08:59 Last Admin: 11/17/19 09:18 Dose: 150 mg Documented by: Hydroxyzine HCl (Vistaril) 50 mg PO HSZ PRN PRN Reason: Insomnia Stop: 12/12/19 01:03 Hydroxyzine HCl (Vistaril) 25 mg PO Q4H PRN PRN Reason: Anxiety Stop: 12/12/19 01:03 Last Admin: 11/15/19 17:51 Dose: 25 mg Documented by: Lorazepam (Ativan) 1 mg PO Q8 PRN PRN Reason: Anxiety/Agitation Stop: 12/12/19 09:52 Last Admin: 11/17/19 11:17 Dose: 1 mg Documented by: Magnesium Hydroxide (Milk Of Magnesia) 30 ml PO DAILY PRN PRN Reason: Constipation Stop: 12/12/19 01:03 Polyethylene Glycol (Miralax Powder Packet) 17 gm PO DAILY PRN PRN Reason: Constipation Stop: 12/17/19 12:08 Last Admin: 11/17/19 12:45 Dose: 17 gm Documented by: Quetiapine Fumarate (Seroquel) 400 mg PO HS [facility] Stop: 12/15/19 21:59 Last Admin: 11/16/19 21:42 Dose: 400 mg Documented by: Sodium Chloride ([place] Nasal) 1 - 2 sprays NA PRN PRN PRN Reason: Nasal Dryness/Congestion Stop: 12/12/19 01:03 Venlafaxine HCl (Effexor Extended Release) 150 mg PO QAM [facility] Stop: 12/16/19 08:59 Last Admin: 11/17/19 09:18 Dose: 150 mg Documented by: Venlafaxine HCl (Effexor Extended Release) 37.5 mg PO QAM [facility] Stop: 12/16/19 08:59 Last Admin: 11/17/19 09:17 Dose: 37.5 mg Documented by: Mental Health & Subst Abuse Tx Therapist Name of Therapist: none Die Cast Supervisor Name of Die Cast Supervisor: none Post Discharge Appointments Primary Care Physician Name Of Family Doctor: Casa Galo, does not recall physician name. (1) UTI (urinary tract infection) Hematuria presence: without hematuria Urinary tract infection type: acute cystitis Qualified Code(s): N30.00 - Acute cystitis without hematuria
[2019-11-17] MEDS: QUETIAPINE FUMARATE 200 MG TAB PO SCH (21:52)
[2019-11-18] MEDS: BuPROPion XL 150 MG TABCR PO SCH (08:44)
[2019-11-18] MEDS: VENLAFAXINE HCL XR 150 MG CAPXR PO SCH (08:44)
[2019-11-18] MEDS: VENLAFAXINE HCL XR 37.5 MG CAPXR PO SCH (08:44)
[2019-11-18] MEDS: POLYETHYLENE (MIRALAX) 17 GM PACK PO PRN (10:59)
--- NOTE | 2019-11-18 16:04 | Psychiatric Progress Note ---
Date of Service November 18, 2019 Impression / Recommendations Impression 49 yo female with recent hospitalization for depression presents with worsening mood and likely progression to major depression with pf as is guarded about possible delusions about and hell. She has multiple vegetative symptoms of depression and appears rather slowed cognitively and/or internally preoccupied. The patient responds in the negative when asked about concerns about and Hell, but seems largely preoccupied throughout each encounter. She acknowledges that she is very depressed and, to a lesser extent, anxious. At the same time, she tells us that she is not suicidal, although her family have reported that she has made suicidal statements in the fairly recent past. She indicates that she does not feel that venlafaxine has been helpful to her at the dosage that had been prescribed. However, complicating the situation is the fact that the patient pretty clearly indicates that she has not been adherent with outpatient medications or has only been partially adherent. The expectation is that the patient's depression and anxiety will improve as her dose of venlafaxine is titrated. bupropion XR daily added and being raised to 300mg am for 11/18 (1) Major depressive disorder, recurrent episode with atypical features: The patient was admitted to the [facility] ([facility] unit) on q15 min checks (behavioral with suicide precautions) for safety. The patient will participate in group, recreational, and milieu therapies and will be offered additional individual and family sessions as clinically appropriate. Risks/benefits/alternatives re: her current medications. Discussion included but was not limited to need for monitoring for metabolic and TD with atypical. She agrees to continue Seroquel and titrate Effexor XR to address depression. 11/12 - Pt tolerates increased dose of Effexor XR without side effects today. Further medication adjustment will be considered if Effexor XR 150 mg doesn't relieve her symptoms well. - Will get TRUNG's for her and her daughter to get collaterals. - Encouraged to attend and participate in groups. - Fasting lipid profile was done when she was hospitalized last month and was notable for slightly elevated TG, 173, and glucose 94. - Will attempt to arrange family meeting with her and her daughter when she gets more stable and aftercare, including psychiatrist, therapist, or/and case briefer, will be set up. 11/13 -Continue current medication regimen since patient does not have any significant side effects of increased venlafaxine XR. Treatment plan was reviewed with the patient. Patient was informed that we will increase quetiapine to 400 mg within 2 to 3 days to target her psychotic features associated with her depression if she does not show any improvement in her symptoms with the increased dose of Effexor. -Encouraged to attend and participate in groups -Attempt to arrange family meeting with her and/or her daughter when she is more stable. -Patient was also informed that the frequency of Ativan will be every 8 hours to decrease the utilization of benzodiazepine. Risks/benefits/alternatives reviewed re: benzodiazepine use. Discussion included but was not limited to risks of dependence and possible respiratory depression if combined with agents like alcohol or opiates. Patient verbalized understanding but was not happy with this decision. 11/14 -Increase venlafaxine XR to 187.5 mg daily to target depression and anxiety, and quetiapine to 400 mg at bedtime to target mood and psychotic symptoms. -Encourage her to be out of bed and participating in treatment. Schedule a family meeting with her . -Coordinate with outpatient clinicians, including case briefer through the [facility] service [facility]. 11/15 -Dose of venlafaxine XR increased as above. Patient reports that she is not experiencing any identified adverse effects. -Because of the patient's complaint of low energy and depression that has not responded favorably to antidepressant medications, bupropion sr 100mg then 150mg mg daily has been added to the patient's medication regimen and will be titrated as indicated. 11/16 assessed impact of recent medications adjustments and maintained Meds unchanged for today since first day of Wellbutrin sr 150mg am and just had doses raise of Seroquel and Effexor XR addressed pt's disconnection as part of her depressive symptoms, consider further titrating of Wellbutrin as appropriate. psychotherapy aspects tied of her main concern attempting to address her connection to God and her sense of that connection being lost and potential to be refound 11/17 raised Wellbutrin xL to 300mg am as of 11/18 dosing therapy section addressed with processing and working thorough pt's hopelessness and thought process that feeling depressed, heavy and disconnected including from God is signs of punishment from God and that she is going to hell with dying a horrible , more receptive but still hopeless, progressed to can she forgive herself and can forgiveness and treatment of depressive symptoms lead to reconnection (2) UTI (urinary tract infection): Bactrim DS started in the ED. Complete 5 day course. Inventory Assets Strengths: family involvement, is taking medication. Motivated to recovery. Needs: therapy/compliance with outpatient plan. Risk Factors Assessment : Yes Do You Have Access To A Gun?: No Mental Health Diagnoses: Yes Substance Use Disorders: No Previous Attempt: No Family History of Suicide: No Previous Psychiatric Hospitalization: Yes Protective Factors Assessment Judaism Beliefs: Yes : Yes Employed: No Supportive Family: Yes Interval History Identifying Information GRAZYNA XIE is a 49-year-old F, recently admitted to in October 2019, who has since reconciled with her . She has a history of depression with suicidal ideation, and was admitted on 11/12/19 00:10 on a 302 involuntary commitment for disorganized behavior with SI, though she denies the latter. Chief Complaint " hopeless, I know I sound delusional but I am not". Review of Systems Sleep Information Total Hours of Sleep: 7.75 Sleep Comments: pt on q-15 minute checks Meal Information Percent Meal Consumed - Breakfast: 100 Percent Meal Consumed - Lunch: 100 Percent Meal Consumed - Dinner: 100 Subjective Subjective Patient was seen & assessed and interval progress reviewed with nursing and social work Pt shared ongoing hopelessness, feeling that she would be killed by somebody and a horrible and go to Hell over her prior comment of not trusting God. She still no longer feels God being near her despite trying to and this has her convienced of her going to Hell. She expressed that her prior banking pin adjuster would not agree with her that she is doomedand that its too late for her., She indicates that her thought process in this issue can sound delsuional but that she does not view it as delusional. We explored how depressive symptoms can impact engagement with others, life and with feeling connected ot things including God. We explored how she feels punished. We explored how she does not know how to forgive herslef, as would expect forgivenes to come from God and does not feel his prescense which tends ot be a more lighthearted, positive energy. Physical Exam Psychiatric Orientation: alert, oriented x 3 and cooperative Apperance: appropriately dressed and appeared stated age Eye Contact: good eye contact Motor Behavior: no abnormal motor movements Speech: normal rate/rhythm/volume of speech (soft speech and not voluntary to engage in the conversation) Affect: + depressed affect and mood congruent with affect Mood: + depressed mood and + anxious mood Thought Process: + perseveration (about hell and ) able to handle abstract concepts but limits to how much such concepts impacts her quasi-delsuiaonal thinking wiht pt seeming to take in the conversation and investigative writer's line of thinking to some degre and might be willing to process such considrations further Thought Content: + preoccupation, + obsessions, + paranoid, + cognitive distortions, + persecution, + hopelessness and + guilt veiwing herself as being punished and going to hell, unable to have mariana or forgiveness to self Suicidal Thoughts: denies suicidal thoughts Homicidal Thoughts: denies homicidal thoughts Hallucinations: no auditory hallucinations and no visual hallucinations Cognition: recent memory grossly intact, attention grossly intact and language grossly intact Estimated Intelligence: average estimated intelligence and consistent with education level inisght fair but more limited to how depressive and anxiety and her cognitive distortions impact her and her thought process Judgement: + fair judgement Vital Signs (Past 24 Hours) Last Vital Signs Temp 36.7 C 11/18/19 06:00 Pulse 86 11/18/19 06:00 Resp 16 11/18/19 06:00 BP 101/68 11/18/19 06:00 Pulse Ox 97 11/11/19 23:55 Results & Data ([facility]) Current Inpatient Medications Current Inpatient Medications: Current Inpatient Medications Acetaminophen (Tylenol) 650 mg PO Q4H PRN PRN Reason: Headache or Minor Fever Stop: 12/12/19 01:03 Al Hydrox/Mg Hydrox/Simethicone (Maalox) 30 ml PO Q4H PRN PRN Reason: GI Upset Stop: 12/12/19 01:03 Bismuth Subsalicylate (Kaopectate) 15 ml PO PRN PRN PRN Reason: Loose Stool Stop: 12/12/19 01:03 Bupropion HCl (Wellbutrin-Xl) 150 mg PO QAM [facility] Stop: 12/17/19 08:59 Last Admin: 11/18/19 08:44 Dose: 150 mg Documented by: Hydroxyzine HCl (Vistaril) 50 mg PO HSZ PRN PRN Reason: Insomnia Stop: 12/12/19 01:03 Hydroxyzine HCl (Vistaril) 25 mg PO Q4H PRN PRN Reason: Anxiety Stop: 12/12/19 01:03 Last Admin: 11/15/19 17:51 Dose: 25 mg Documented by: Lorazepam (Ativan) 1 mg PO Q8 PRN PRN Reason: Anxiety/Agitation Stop: 12/12/19 09:52 Last Admin: 11/17/19 20:34 Dose: 1 mg Documented by: Magnesium Hydroxide (Milk Of Magnesia) 30 ml PO DAILY PRN PRN Reason: Constipation Stop: 12/12/19 01:03 Polyethylene Glycol (Miralax Powder Packet) 17 gm PO DAILY PRN PRN Reason: Constipation Stop: 12/17/19 12:08 Last Admin: 11/18/19 10:59 Dose: 17 gm Documented by: Quetiapine Fumarate (Seroquel) 400 mg PO HS [facility] Stop: 12/15/19 21:59 Last Admin: 11/17/19 21:52 Dose: 400 mg Documented by: Sodium Chloride ([place] Nasal) 1 - 2 sprays NA PRN PRN PRN Reason: Nasal Dryness/Congestion Stop: 12/12/19 01:03 Venlafaxine HCl (Effexor Extended Release) 150 mg PO QAM [facility] Stop: 12/16/19 08:59 Last Admin: 11/18/19 08:44 Dose: 150 mg Documented by: Venlafaxine HCl (Effexor Extended Release) 37.5 mg PO QAM [facility] Stop: 12/16/19 08:59 Last Admin: 11/18/19 08:44 Dose: 37.5 mg Documented by: Mental Health & Subst Abuse Tx Therapist Name of Therapist: none Candle Wrapper Name of Candle Wrapper: none Post Discharge Appointments Primary Care Physician Name Of Family Doctor: Casa Galo Primary Care Provider Appointment Comment: [place] [id number] Contact Information Discharge Discharge [address]: [address] [place] [address] (1) UTI (urinary tract infection) Hematuria presence: without hematuria Urinary tract infection type: acute cystitis Qualified Code(s): N30.00 - Acute cystitis without hematuria
[2019-11-18] MEDS: LORazepam 1 MG TAB PO PRN (18:12)
[2019-11-18] MEDS: QUETIAPINE FUMARATE 200 MG TAB PO SCH (21:27)
[2019-11-19] MEDS: BuPROPion XL 300 MG TABCR PO SCH (08:37)
[2019-11-19] MEDS: VENLAFAXINE HCL XR 150 MG CAPXR PO SCH (08:37)
[2019-11-19] MEDS: VENLAFAXINE HCL XR 37.5 MG CAPXR PO SCH (08:37)
--- NOTE | 2019-11-19 09:18 | Psychiatric Progress Note ---
Date of Service November 19, 2019 Impression / Recommendations Impression 49 yo female with recent hospitalization for depression presents with worsening mood and likely progression to major depression with pf as is guarded about possible delusions about and hell. She has multiple vegetative symptoms of depression and appears rather slowed cognitively and/or internally preoccupied. The patient responds in the negative when asked about concerns about and Hell, but seems largely preoccupied throughout each encounter. She acknowledges that she is very depressed and, to a lesser extent, anxious. At the same time, she tells us that she is not suicidal, although her family have reported that she has made suicidal statements in the fairly recent past. She indicates that she does not feel that venlafaxine has been helpful to her at the dosage that had been prescribed. However, complicating the situation is the fact that the patient pretty clearly indicates that she has not been adherent with outpatient medications or has only been partially adherent. The expectation is that the patient's depression and anxiety will improve as her dose of venlafaxine is titrated. Bupropion XR daily added and being raised to 300mg am. Pt signed in for voluntary treatment on 11/14. Though she is ambivalent about ongoing SI, she continues to report that she is concerned about limited improvement so far in her admission and does not feel safe for discharge. Ongoing inpatient psychiatric treatment is medically necessary at this time. (1) Major depressive disorder, recurrent episode with atypical features: The patient was admitted to the [facility] ([facility] mental health unit) on q15 min checks (behavioral with suicide precautions) for safety. The patient will participate in group, recreational, and milieu therapies and will be offered additional individual and family sessions as clinically appropriate. Risks/benefits/alternatives re: her current medications. Discussion included but was not limited to need for monitoring for metabolic and TD with atypical. She agrees to continue Seroquel and titrate Effexor XR to address depression. 11/12 - Pt tolerates increased dose of Effexor XR without side effects today. Further medication adjustment will be considered if Effexor XR 150 mg doesn't relieve her symptoms well. - Will get TRUNG's for her and her daughter to get collaterals. - Encouraged to attend and participate in groups. - Fasting lipid profile was done when she was hospitalized last month and was notable for slightly elevated TG, 173, and glucose 94. - Will attempt to arrange family meeting with her and her daughter when she gets more stable and aftercare, including psychiatrist, therapist, or/and human services case manager, will be set up. 11/13 -Continue current medication regimen since patient does not have any significant side effects of increased venlafaxine XR. Treatment plan was reviewed with the patient. Patient was informed that we will increase quetiapine to 400 mg within 2 to 3 days to target her psychotic features associated with her depression if she does not show any improvement in her symptoms with the increased dose of Effexor. -Encouraged to attend and participate in groups -Attempt to arrange family meeting with her and/or her daughter when she is more stable. -Patient was also informed that the frequency of Ativan will be every 8 hours to decrease the utilization of benzodiazepine. Risks/benefits/alternatives reviewed re: benzodiazepine use. Discussion included but was not limited to risks of dependence and possible respiratory depression if combined with agents like alcohol or opiates. Patient verbalized understanding but was not happy with this decision. 11/14 -Increase venlafaxine XR to 187.5 mg daily to target depression and anxiety, and quetiapine to 400 mg at bedtime to target mood and psychotic symptoms. -Encourage her to be out of bed and participating in treatment. Schedule a family meeting with her . -Coordinate with outpatient clinicians, including human services case manager through the base [facility]. 11/15 -Dose of venlafaxine XR increased as above. Patient reports that she is not experiencing any identified adverse effects. -Because of the patient's complaint of low energy and depression that has not responded favorably to antidepressant medications, bupropion sr 100mg then 150mg mg daily has been added to the patient's medication regimen and will be titrated as indicated. 11/16 assessed impact of recent medications adjustments and maintained Meds unchanged for today since first day of Wellbutrin sr 150mg am and just had doses raise of Seroquel and Effexor XR addressed pt's disconnection as part of her depressive symptoms, consider further titrating of Wellbutrin as appropriate. psychotherapy aspects tied of her main concern attempting to address her connection to God and her sense of that connection being lost and potential to be refound 11/17 raised Wellbutrin xL to 300mg am as of 11/18 dosing therapy section addressed with processing and working thorough pt's hopelessness and thought process that feeling depressed, heavy and disconnected including from God is signs of punishment from God and that she is going to hell with dying a horrible , more receptive but still hopeless, progressed to can she forgive herself and can forgiveness and treatment of depressive symptoms lead to reconnection 11/18 - Continue current medication regimen - bupropion XL 300mg received this morning, continue venlafaxine and quetiapine - Pt continues to receive lorazepam periodically for anxiety - only one dose throughout the day on 11/17; plan is for medication to be discontinued at discharge - Pt less interested in discussing any delusional thought content today, more preoccupied with low mood and hopelessness - Family meeting with is scheduled for this afternoon (2) UTI (urinary tract infection): Bactrim DS started in the ED. Complete 5 day course. Course of Bactrim completed on 11/16/2019, denies ongoing symptoms Inventory Assets Strengths: family involvement, is taking medication. Motivated to recovery. Needs: therapy/compliance with outpatient plan. Risk Factors Assessment : Yes Do You Have Access To A Gun?: No Mental Health Diagnoses: Yes Substance Use Disorders: No Previous Attempt: No Family History of Suicide: No Previous Psychiatric Hospitalization: Yes Protective Factors Assessment [employer]ology Beliefs: Yes : Yes Employed: No Supportive Family: Yes Interval History Identifying Information GRAZYNA XIE is a 49-year-old F, recently admitted to in October 2019, who has since reconciled with her . She has a history of depression with suicidal ideation, and was admitted on 11/12/19 00:10 on a 302 involuntary commitment for disorganized behavior with SI, though she denies the latter. Pt signed in voluntarily for treatment on 11/14 and is now on a 201. Chief Complaint "Not good." Review of Systems Notes Constitutional: reports fatigue and low energy Cardiovascular: denied Respiratory: denied Gastrointestinal: denied Neurological: denied Psychiatric: denies symptoms other than stated above Total of at least 10 systems reviewed, pertinent positives as above and in HPI. Sleep Information Total Hours of Sleep: 8 Sleep Comments: pt on q-15 minute checks Meal Information Percent Meal Consumed - Breakfast: 100 Percent Meal Consumed - Lunch: 100 Percent Meal Consumed - Dinner: 100 Subjective Subjective Patient was seen & assessed and interval progress reviewed with treatment team. Staff report the patient had endorsed ongoing SI but very low energy which limits the patient's concern she would act on the thoughts. Pt did shower on the unit and has been eating. Staff report her affect remains very depressed, and only slightly improved from admission. Pt rated her mood a 3/10 and "sad" last evening. Pt was seen today to assess progress since admission. Pt states she is "not good", and when asked what is contributing to this feeling states "just really sad." Pt is unable to identify any particular stressors at this time, but is able to state her goal to "try to stay positive." Pt does report that group programming has been helpful, but she does not feel as though her condition has improved much since admission. Pt states, "I really don't feel ready, I hope I'm not going home soon." When asked what patient would hope to be different by the time of discharge, she states "just to be a little bit happier, have more energy." She denies medication side effects and we discussed the estimate that it may take weeks to see maximum benefits of medication gupta es. Pt indicates willingness for referrals for outpatient psychiatric providers at this time and did agree to a family meeting with her this afternoon. Pt states, "we talk everyday, I'm not sure I have anything new to tell him." This provider did ask several questions regarding the patient's thought process, attempting to discuss any ongoing delusional/distorted thought content. Pt rem ained focused on her mood and limited motivation and answered questions by simply stating "I'm not ready to go." Pt denied SI at this time, but continues to endorse significant depression and hopelessness. She denied other needs or concerns today. Physical Exam Psychiatric Orientation: alert, oriented x 3 and cooperative (superficially) Apperance: appropriately dressed and appropriately groomed Eye Contact: + fair eye contact Motor Behavior: no abnormal motor movements (observed while laying in bed) Speech: normal rate/rhythm/volume of speech (monotone, brief responses to questions) Affect: + depressed affect and mood congruent with affect Mood: + depressed mood Thought Process: goal directed thought process and + concrete thought process Thought Content: + preoccupation (with low energy and motivation), + cognitive distortions (ongoing, though limited willingness to discuss in detail) and + hopelessness Suicidal Thoughts: denies suicidal thoughts (but continues to endorse significant hopelessness) Homicidal Thoughts: denies homicidal thoughts Hallucinations: no auditory hallucinations and no visual hallucinations Cognition: attention grossly intact and language grossly intact Estimated Intelligence: consistent with education level Insight: + limited insight Judgement: + fair judgement Vital Signs (Past 24 Hours) Last Vital Signs Temp 36.7 C 11/19/19 06:49 Pulse 90 11/19/19 06:49 Resp 18 11/19/19 06:49 BP 104/72 11/19/19 06:49 Pulse Ox 97 11/11/19 23:55 Results & Data ([facility]) Current Inpatient Medications Current Inpatient Medications: Current Inpatient Medications Acetaminophen (Tylenol) 650 mg PO Q4H PRN PRN Reason: Headache or Minor Fever Stop: 12/12/19 01:03 Al Hydrox/Mg Hydrox/Simethicone (Maalox) 30 ml PO Q4H PRN PRN Reason: GI Upset Stop: 12/12/19 01:03 Bismuth Subsalicylate (Kaopectate) 15 ml PO PRN PRN PRN Reason: Loose Stool Stop: 12/12/19 01:03 Bupropion HCl (Wellbutrin-Xl) 300 mg PO QAM BRONWYN Stop: 12/19/19 08:59 Last Admin: 11/19/19 08:37 Dose: 300 mg Documented by: Hydroxyzine HCl (Vistaril) 50 mg PO HSZ PRN PRN Reason: Insomnia Stop: 12/12/19 01:03 Hydroxyzine HCl (Vistaril) 25 mg PO Q4H PRN PRN Reason: Anxiety Stop: 12/12/19 01:03 Last Admin: 11/15/19 17:51 Dose: 25 mg Documented by: Lorazepam (Ativan) 1 mg PO Q8 PRN PRN Reason: Anxiety/Agitation Stop: 12/12/19 09:52 Last Admin: 11/18/19 18:12 Dose: 1 mg Documented by: Magnesium Hydroxide (Milk Of Magnesia) 30 ml PO DAILY PRN PRN Reason: Constipation Stop: 12/12/19 01:03 Polyethylene Glycol (Miralax Powder Packet) 17 gm PO DAILY PRN PRN Reason: Constipation Stop: 12/17/19 12:08 Last Admin: 11/18/19 10:59 Dose: 17 gm Documented by: Quetiapine Fumarate (Seroquel) 400 mg PO HS BRONWYN Stop: 07/11/20 21:59 Last Admin: 11/18/19 21:27 Dose: 400 mg Documented by: Sodium Chloride ([place] Nasal) 1 - 2 sprays NA PRN PRN PRN Reason: Nasal Dryness/Congestion Stop: 12/12/19 01:03 Venlafaxine HCl (Effexor Extended Release) 150 mg PO QAM BRONWYN Stop: 12/16/19 08:59 Last Admin: 11/19/19 08:37 Dose: 150 mg Documented by: Venlafaxine HCl (Effexor Extended Release) 37.5 mg PO QAM BRONWYN Stop: 12/16/19 08:59 Last Admin: 11/19/19 08:37 Dose: 37.5 mg Documented by: Mental Health & Subst Abuse Tx Therapist Name of Therapist: none Bone Drier Name of Bone Drier: none Post Discharge Appointments Primary Care Physician Name Of Family Doctor: [facility] Primary Care Provider Appointment Comment: [address] [place] [address] Contact Information Discharge Discharge Address: [address] [place] [address] (1) UTI (urinary tract infection) Hematuria presence: without hematuria Urinary tract infection type: acute cystitis Qualified Code(s): N30.00 - Acute cystitis without hematuria
[2019-11-19] MEDS: LORazepam 1 MG TAB PO PRN (11:19)
[2019-11-19] MEDS: QUETIAPINE FUMARATE 200 MG TAB PO SCH (21:43)
[2019-11-20] MEDS: LORazepam 1 MG TAB PO PRN ×2 (03:54→13:12)
[2019-11-20] MEDS: VENLAFAXINE HCL XR 150 MG CAPXR PO SCH (08:51)
[2019-11-20] MEDS: BuPROPion XL 300 MG TABCR PO SCH (08:52)
[2019-11-20] MEDS: VENLAFAXINE HCL XR 37.5 MG CAPXR PO SCH (08:52)
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
[2019-11-20] MEDS: QUETIAPINE FUMARATE 200 MG TAB PO SCH (21:47)
[2019-11-21] MEDS: LORazepam 1 MG TAB PO PRN ×2 (04:07→15:59)
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
[2019-11-21] MEDS: VENLAFAXINE HCL XR 75 MG CAPXR PO SCH (10:02)
[2019-11-21] MEDS: VENLAFAXINE HCL XR 150 MG CAPXR PO SCH (10:02)
[2019-11-21] MEDS: BuPROPion XL 300 MG TABCR PO SCH (10:02)
[2019-11-21] MEDS: QUETIAPINE FUMARATE 200 MG TAB PO SCH (21:50)
[2019-11-22] MEDS: LORazepam 1 MG TAB PO PRN ×2 (05:15→14:12)
[2019-11-22] MEDS: BuPROPion XL 300 MG TABCR PO SCH (09:03)
[2019-11-22] MEDS: VENLAFAXINE HCL XR 75 MG CAPXR PO SCH (09:03)
[2019-11-22] MEDS: VENLAFAXINE HCL XR 150 MG CAPXR PO SCH (09:03)
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
--- NOTE | 2019-11-22 10:36 | Communication Note ---
Date of Service: November 22, 2019 Reviewed [facility] PCP records: Patient saw iMriam Renner PA-C, on 07/18/2019 to reestablish care (previously saw Dr. Rodrigues). She had not been on m edications for some time, reported doing well on quetiapine for sleep and mood. She endorsed symptoms of depression and was started on quetiapine 100 mg daily. She followed up 07/26/2019, and reported improved sleep. She had increased her Seroquel to 300 mg at bedtime on her own. She had been referred to a psychiatrist and had an upcoming appointment. She was started on venlafaxine XR 150 mg daily.
[2019-11-22] MEDS: QUETIAPINE FUMARATE 200 MG TAB PO SCH (21:52)
[2019-11-23] MEDS: BuPROPion XL 300 MG TABCR PO SCH (08:29)
[2019-11-23] MEDS: VENLAFAXINE HCL XR 75 MG CAPXR PO SCH (08:29)
[2019-11-23] MEDS: VENLAFAXINE HCL XR 150 MG CAPXR PO SCH (08:29)
[2019-11-23] MEDS: LORazepam 1 MG TAB PO PRN (08:29)
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
== END 2019-11-23 12:25 | disposition home or self-care (01) | DRG 885 ==
LOC: ED 20:04 → 3S 11-12 00:10